=== PATIENT | female | born 1930 | race Caucasian/White ===

== ENCOUNTER 2018-07-12 17:18 | Inpatient (IN) | payer MEDICARE, MEDICAID ==
[~2018-07-12] VITALS: Ht 162.6 cm; Wt 64.4 kg
[2018-07-12 17:43] VITALS: BP 164/67
[2018-07-12] MEDS ORDERED: MAG HYDROX/AL HYDROX/SIMETH 30 ML ORAL.SUSP PO PRN (17:45)
[2018-07-12] MEDS ORDERED: METHYL SALICYLATE/MENTHOL TOPICAL OINTMENT 29GM TUBE. TP PRN (17:45)
[2018-07-12] MEDS ORDERED: MAGNESIUM HYDROXIDE 2,400 MG/30 ML ORAL.SUSP. PO PRN (17:45)
[2018-07-12] MEDS ORDERED: ACETAMINOPHEN 325 MG TABLET PO PRN (17:45)
[2018-07-12] MEDS ORDERED: MEMA10TA PO (18:21)
[2018-07-12] MEDS ORDERED: CHOL100013 PO (18:21)
[2018-07-12] MEDS ORDERED: LORA-254 PO (18:21)
[2018-07-12] MEDS ORDERED: LEVO50TA PO (18:21)
[2018-07-12] MEDS ORDERED: DIVA125C2 PO (18:21)
[2018-07-12] MEDS ORDERED: SERT25TA PO (18:21)
[2018-07-12] MEDS ORDERED: DONE10TA61 PO (18:21)
[2018-07-12] MEDS ORDERED: CYAN10005 PO (18:21)
[2018-07-12] MEDS ORDERED: SPIR25TA PO (18:21)
[2018-07-12] MEDS ORDERED: FURO-69 PO (18:21)
[2018-07-12] MEDS ORDERED: FAMO-63 PO (18:21)
--- NOTE | 2018-07-12 19:20 | HP ---
ADMIT DATE: 07/12/2018 IDENTIFYING DATA: The patient is an 88-year-old female referred to us from [facility] in [place], [place] by Dr. Haider, her primary care physician on account of increased agitation, worsening in the evening. She tried to pull another resident out of bed. She has been impulsive, talks to someone who was not there. She has been restless. She has had significant sleep and appetite changes. She was seen to [facility] Emergency Room, found to have a UTI, given a dose of Monurol. She was extremely agitated in the ER, received Haldol IM 2.5 mg, referred to us for inpatient psychiatric stabilization. CHIEF COMPLAINT: "No." The patient is oriented just to herself, anxious, restless, constantly moving, pulling out Kleenex from a Kleenex box having it all over. HISTORY OF PRESENT ILLNESS: The patient has a history of dementia, Alzheimer's vascular type. She has been residing at the above facility for some time. Over the last several days, she has been increasingly agitated, psychotic with sleep and appetite changes, marked aggression. Behaviors have been deemed dangerous, out of control, unmanageable, dangerous to others, referred for inpatient psychiatric stabilization. No clear history of bipolar disorder. PAST PSYCHIATRIC HISTORY: As above. PAST MEDICAL HISTORY: Positive for hypothyroidism, hyponatremia, and UTI. CODE STATUS: DNR. ALLERGIES: CHEESE, SULFA. XANAX, CELEBREX, CODEINE, DEMEROL, MORPHINE, PILOCARPINE. DIET: GI soft diet. Takes medications whole, ambulates independently, unsteady gait. CURRENT PSYCHOTROPICS: Namenda 10 mg twice a day, Depakote 375 mg b.i.d., Ativan 0.25 t.i.d., Aricept 10 mg a day, Zoloft 25 mg a day. FAMILY HISTORY: Noncontributory. SOCIAL HISTORY: No history of alcohol, drug abuse, physical, sexual or elder abuse history is noted. Not known to be a perpetrator. REACTION TO HOSPITALIZATION: The patient oblivious of this assets. The patient's power of banking attorney is her daughter, Ronda Padilla who arranged this hospitalization who approved for this hospitalization for the patient and stable living at the intermediate. MENTAL STATUS EXAM: The patient was seen individually shortly after she arrived from the unit evening of 07/12/2018. She is anxious, restless, constantly pulling out Kleenex from a Kleenex box. Insight, judgment, recent and remote memory, attention, concentration, fund of knowledge poor, consistent with his diagnosis. IMPRESSION: Major neurocognitive disorder, Alzheimer, vascular with delusion, depression, behavioral disturbance; anxiety disorder, unspecified; impulse control disorder, unspecified; urinary tract infection. Rest as above. PLAN: Admit to geropsychiatry unit at [facility]. I will see the patient daily individually from a psychiatric standpoint, medical followup with Dr. Reed/Dr. Bond from a medical standpoint. Treat the urinary tract infection. Continue current psychotropics. Check a valproic acid level. Make further adjustments depending on baseline assessment. MAN Nataly OLVERA MD DR: MACY/aretha JOB#: [id number] / [id number]
[2018-07-12] MEDS: SERTRALINE 25 MG TABLET. PO SCH (20:56)
[2018-07-12] MEDS: MEMANTINE 10 MG TABLET. PO SCH (20:56)
[2018-07-12] MEDS: DIVALPROEX 125 MG CAP.SPRINK PO SCH (20:56)
[2018-07-12] MEDS: DONEPEZIL HCL 10 MG TABLET PO SCH (20:56)
[2018-07-12] MEDS: LORazepam 0.5 MG TABLET PO SCH (20:57)
--- NOTE | 2018-07-12 21:06 | PDOC ---
Exam Note: Pepe Note: Please also refer to the separate dictated note~for this date of service dictated separately.~Patient seen individually. Discussed the patient with Nursing staff reviewed the chart.~Reviewed interim history and current functioning. Reviewed vital signs,~Labs/ Radiology~and current medications noted below. Continue current treatment with the changes noted in the dictated addendum note Assessment: Vital Signs: Vital Signs Date Time Temp Pulse Resp B/P (MAP) Pulse Ox O2 Delivery O2 Flow Rate FiO2 07/12/18 17:43 98.5 72 20 164/67 (99) 98 Current Medications: Meds: Current Medications Acetaminophen (Tylenol) 650 mg PRN Q6HRS PRN PO PAIN / TEMP; Start 07/12/18 at 17:45 Multi-Ingredient Ointment (Analgesic [place]) 1 jazlyn PRN QID PRN TP MUSCLE PAIN; Start 07/12/18 at 17:45 Al Hydroxide/Mg Hydroxide (Mylanta Plus Xs) 15 ml PRN AFTMEALHC PRN PO DYSPEPSIA; Start 07/12/18 at 17:45 Magnesium Hydroxide (Milk Of Magnesia) 2,400 mg PRN QHS PRN PO CONSTIPATION; Start 07/12/18 at 17:45 Influenza Virus Vaccine (Afluria Trivalent [id number] Syringe) 0.5 ml ONCE ONCE VAX IM ; Start 07/13/18 at 09:00; Stop 07/13/18 at 09:01 Cyanocobalamin (Vitamin B-12) 1,000 mcg DAILY PO ; Start 07/13/18 at 09:00 Furosemide (Lasix) 20 mg DAILY PO ; Start 07/13/18 at 09:00 Lorazepam (Ativan) 0.25 mg TID PO Last administered on 07/12/18at 20:57; Start 07/12/18 at 21:00 Vitamin D (Vitamin D3) 1,000 unit DAILY PO ; Start 07/13/18 at 09:00 Divalproex Sodium (Depakote Sprinkles) 375 mg BID PO Last administered on 07/12at 20:56; Start 07/12/18 at 21:00 Donepezil HCl (Aricept) 10 mg QHS PO Last administered on 07/12/18at 20:56; Start 07/12/18 at 21:00 Famotidine (Pepcid) 20 mg DAILY PO ; Start 07/13/18 at 09:00 Levothyroxine Sodium (Synthroid) 37.5 mcg DAILY06 PO ; Start 07/13/18 at 06:00 Memantine (Namenda) 10 mg BID PO Last administered on 07/12/18at 20:56; Start 07/12/18 at 21:00 Sertraline HCl (Zoloft) 25 mg QHS PO Last administered on 07/12/18at 20:56; Start 07/12/18 at 21:00 Spironolactone (Aldactone) 12.5 mg DAILY PO ; Start 07/13/18 at 09:00 Active Scripts Active Reported Zoloft (Sertraline Hcl) 25 Mg Tablet 25 Mg PO QHS Aricept (Donepezil Hcl) 10 Mg Tablet 10 Mg PO QHS Ativan (Lorazepam) 1 Mg Tablet 0.25 Mg PO TID Depakote Sprinkle (Divalproex Sodium) 125 Mg Cap.sprink 375 Mg PO BID Namenda (Memantine Hcl) 10 Mg Tablet 10 Mg PO BID Vitamin D (Cholecalciferol (Vitamin D3)) 1,000 Unit Capsule 1,000 Unit PO DAILY Aldactone (Spironolactone) 25 Mg Tablet 12.5 Mg PO DAILY Lasix (Furosemide) 20 Mg Tablet 20 Mg PO DAILY Pepcid (Famotidine) 20 Mg Tablet 20 Mg PO DAILY Vitamin B-12 (Cyanocobalamin (Vitamin B-12)) 1,000 Mcg Tablet 1,000 Mcg PO DAILY Synthroid (Levothyroxine Sodium) 50 Mcg Tablet 37.5 Mcg PO DAILY06 I have reviewed the current psychotropics carefully including drug interactions. Risk benefit ratio favors no change other than as noted in my dictated progress note. Diagnosis: Problems: (1) Anxiety disorder (2) Dementia in Alzheimer's disease with delusions (3) Dementia in Alzheimer's disease with depression (4) Dementia, vascular, with delusions (5) Dementia, vascular, with depression (6) Impulse control disorder (7) Urinary tract infection NANDA OLVERA MD Jul 12, 2018 21:06
[2018-07-13 06:18] VITALS: BP 140/82
[2018-07-13] MEDS: LEVOTHYROXINE 75 MCG TABLET PO SCH (06:20)
[2018-07-13 07:30] LABS: BASO % 1 % (0-3); EOS # 0.2 x10^3/uL (0.0-0.7); EOS % 5 % (0-3); HEMATOCRIT 40.2 % (36.0-47.0); HEMOGLOBIN 13.5 g/dL (12.0-15.5); LYMPH # 1.1 x10^3/uL (1.0-4.8); LYMPH % 25 % (24-48); MEAN CORPUSCULAR HEMOGLOBIN 31 pg (25-35); MEAN CORPUSCULAR HGB CONC 34 g/dL (31-37); MEAN CORPUSCULAR VOLUME 93 fL (79-100); MONO # 0.4 x10^3/uL (0.0-1.1); MONO % 10 % (0-9); NEUT # 2.6 x10^3uL (1.8-7.7); NEUT % 59 % (31-73); PLATELET COUNT 194 x10^3/uL (140-400); RED BLOOD COUNT 4.31 x10^6/uL (3.50-5.40); RED CELL DISTRIBUTION WIDTH 13.7 % (11.5-14.5); WHITE BLOOD COUNT 4.3 x10^3/uL (4.0-11.0)
[2018-07-13 07:42] LABS: ALBUMIN 3.2 g/dL (3.4-5.0); ALBUMIN/GLOBULIN RATIO 0.8 (1.0-1.7); CALCIUM 8.6 mg/dL (8.5-10.1); CREATININE 0.9 mg/dL (0.6-1.0); MAGNESIUM 2.4 mg/dL (1.8-2.4); POTASSIUM 3.9 mmol/L (3.5-5.1); TOTAL BILIRUBIN 0.5 mg/dL (0.2-1.0); TOTAL PROTEIN 7.1 g/dL (6.4-8.2)
[2018-07-13 07:46] LABS: VAL ACID 39 mcg/mL (50-100)
[2018-07-13] MEDS: DIVALPROEX 125 MG CAP.SPRINK PO SCH ×2 (10:25→19:30)
[2018-07-13] MEDS: MEMANTINE 10 MG TABLET. PO SCH ×2 (10:25→19:26)
[2018-07-13] MEDS: FAMOTIDINE 20 MG TABLET PO SCH (10:35)
[2018-07-13] MEDS: FUROSEMIDE 20 MG TABLET PO SCH (10:35)
[2018-07-13] MEDS: CYANOCOBALAMIN (VITAMIN B-12) 1,000 MCG TABLET. PO SCH (10:36)
[2018-07-13] MEDS: LORazepam 0.5 MG TABLET PO SCH ×3 (10:36→19:29)
[2018-07-13] MEDS: CHOLECALCIFEROL (VITAMIN D3) 1,000 UNIT TABLET PO SCH (10:36)
[2018-07-13] MEDS: SPIRONOLACTONE 25 MG TABLET PO SCH (10:36)
[2018-07-13 13:33] LABS: THYROID STIM HORMONE (TSH) 3.214 uIU/mL (0.358-3.740)
--- NOTE | 2018-07-13 15:56 | PDOC2 ---
CONSULT Date of Admission DATE: 07/12/18 Reason for Consult: Medical management Referring Physician: Dr Mujica Chief Complaint Worsening dementia Source: Caregiver, Chart review, Patient History of Present Illness: Patient is an 88-year-old female from [facility] in [place], [place] by Dr. Haider, her primary care physician with increased agitation, particularly in the evening. Records indicate she's been restless and impulsive, apparently hallucinating talking to people who were not present. Records indicate that she tried to pull another resident out of bed. She has been eating and sleeping less. She was initially sent to [facility] emergency department CT head reportedly negative and urine was grossly positive for infection received Monural. Records indicate that she grew extremely agitated and unmanageable in the ER, received Haldol IM 2.5 mg. Medically she has history of hypothyroidism and hyponatremia in addition to her current UTI. I find the patient pacing up and down the [place] as if with purpose. Intermittently she will stop and move her hands rapidly over the hand rail while mumbling to herself. When I engage her to talk she begins speaking very rapidly mostly unintelligibly and upon stopping she once again begins marching. She has a DNR is very mobile. Available labs are reassuring, pertinent abnormalities include albumin 3.2, LDL 129, vitamin D 25.2, valproic acid 39, urine has not yet been collected. CENTRAL NERVOUS SYSTEM: Dementia (encephalopathy) Psych: Anxiety, Depression Renal/: UTI Endocrine: Hypothyroidism, Other (hyponatremia) Past Surgical History: No pertinent history Smoke: No ALCOHOL: none Drugs: None Lives: [facility] Current Medications Current Medications Acetaminophen (Tylenol) 650 mg PRN Q6HRS PRN PO PAIN / TEMP; Start 07/12/18 at 17:45 Multi-Ingredient Ointment (Analgesic [place]) 1 jazlyn PRN QID PRN TP MUSCLE PAIN; Start 07/12/18 at 17:45 Al Hydroxide/Mg Hydroxide (Mylanta Plus Xs) 15 ml PRN AFTMEALHC PRN PO DYSPEPSIA; Start 07/12/18 at 17:45 Magnesium Hydroxide (Milk Of Magnesia) 2,400 mg PRN QHS PRN PO CONSTIPATION; Start 07/12/18 at 17:45 Influenza Virus Vaccine (Afluria Trivalent [id number] Syringe) 0.5 ml ONCE ONCE VAX IM Last administered on 07/13/18 15:24; Start 07/13/18 at 09:00; Stop 07/13/18 at 09:01; Status DC Cyanocobalamin (Vitamin B-12) 1,000 mcg DAILY PO Last administered on 10:36; Start 07/13/18 at 09:00 Furosemide (Lasix) 20 mg DAILY PO Last administered on 07/13/18 10:35; Start 07/13/18 at 09:00 Lorazepam (Ativan) 0.25 mg TID PO Last administered on 07/13/18at 15:05; Start 07/12/18 at 21:00 Vitamin D (Vitamin D3) 1,000 unit DAILY PO Last administered on 07/13/18 10: 36; Start 07/13/18 at 09:00 Divalproex Sodium (Depakote Sprinkles) 375 mg BID PO Last administered on 07/13 10:25; Start 07/12/18 at 21:00; Stop 07/13/18 at 12:50; Status DC Donepezil HCl (Aricept) 10 mg QHS PO Last administered on 07/12/18at 20:56; Start 07/12/18 at 21:00 Famotidine (Pepcid) 20 mg DAILY PO Last administered on 07/13/18 10:35; Start 07/13/18 at 09:00 Levothyroxine Sodium (Synthroid) 37.5 mcg DAILY06 PO Last administered on 07/13at 06:20; Start 07/13/18 at 06:00 Memantine (Namenda) 10 mg BID PO Last administered on 07/13/18at 10:25; Start 07/12/18 at 21:00 Sertraline HCl (Zoloft) 25 mg QHS PO Last administered on 07/12/18at 20:56; Start 07/12/18 at 21:00 Spironolactone (Aldactone) 12.5 mg DAILY PO Last administered on 07/13/18 10: 36; Start 07/13/18 at 09:00 Divalproex Sodium (Depakote Sprinkles) 500 mg BID PO ; Start 07/13/18 at 21:00 Active Scripts Active Reported Zoloft (Sertraline Hcl) 25 Mg Tablet 25 Mg PO QHS Aricept (Donepezil Hcl) 10 Mg Tablet 10 Mg PO QHS Ativan (Lorazepam) 1 Mg Tablet 0.25 Mg PO TID Depakote Sprinkle (Divalproex Sodium) 125 Mg Cap.sprink 375 Mg PO BID Namenda (Memantine Hcl) 10 Mg Tablet 10 Mg PO BID Vitamin D (Cholecalciferol (Vitamin D3)) 1,000 Unit Capsule 1,000 Unit PO DAILY Aldactone (Spironolactone) 25 Mg Tablet 12.5 Mg PO DAILY Lasix (Furosemide) 20 Mg Tablet 20 Mg PO DAILY Pepcid (Famotidine) 20 Mg Tablet 20 Mg PO DAILY Vitamin B-12 (Cyanocobalamin (Vitamin B-12)) 1,000 Mcg Tablet 1,000 Mcg PO DAILY Synthroid (Levothyroxine Sodium) 50 Mcg Tablet 37.5 Mcg PO DAILY06 Allergies: Coded Allergies: Sulfa (Sulfonamide Antibiotics) (Verified Allergy, Intermediate, 07/13/18) alprazolam (Verified Allergy, Intermediate, 07/13/18) celecoxib (Verified Allergy, Intermediate, 07/13/18) cheese (Verified Allergy, Intermediate, 07/13/18) codeine (Verified Allergy, Intermediate, 07/13/18) meperidine (Verified Allergy, Intermediate, 07/13/18) morphine (Verified Allergy, Intermediate, 07/13/18) pilocarpine (Verified Allergy, Intermediate, 07/13/18) Review of Systems: Due to patient's condition and accurate review of systems is unobtainable, please see history of present illness Physical Exam: Gen.: Alert, confused, no apparent distress HEENT: Normocephalic atraumatic, PERRLA EOMI as tested, no scleral icterus, oral mucosa pink and moist Neck: Supple, no lymphadenopathy, nontender Cardiovascular: Normal S1 and S2 no murmurs Pulmonary: Lungs are clear bilaterally with good air movement no respiratory distress Abdomen: Soft nontender non-distended, bowel sounds present no masses Extremities: No clubbing, cyanosis or edema Neuro: Alert happily confused, cranial nerves II through XII grossly intact, no lateralizing neuro deficits Skin: Warm, dry VITALS Vital Signs Date Time Temp Pulse Resp B/P (MAP) Pulse Ox O2 Delivery O2 Flow Rate FiO2 10/11/18 06:18 96.8 82 20 140/82 (101) 95 Labs Laboratory Tests Test 07/13/18 06:47 White Blood Count 4.3 x10^3/uL (4.0-11.0) Red Blood Count 4.31 x10^6/uL (3.50-5.40) Hemoglobin 13.5 g/dL (12.0-15.5) Hematocrit 40.2 % (36.0-47.0) Mean Corpuscular Volume 93 fL (79-100) Mean Corpuscular Hemoglobin 31 pg (25-35) Mean Corpuscular Hemoglobin Concent 34 g/dL (31-37) Red Cell Distribution Width 13.7 % (11.5-14.5) Platelet Count 194 x10^3/uL (140-400) Neutrophils (%) (Auto) 59 % (31-73) Lymphocytes (%) (Auto) 25 % (24-48) Monocytes (%) (Auto) 10 % (0-9) Eosinophils (%) (Auto) 5 % (0-3) Basophils (%) (Auto) 1 % (0-3) Neutrophils # (Auto) 2.6 x10^3uL (1.8-7.7) Lymphocytes # (Auto) 1.1 x10^3/uL (1.0-4.8) Monocytes # (Auto) 0.4 x10^3/uL (0.0-1.1) Eosinophils # (Auto) 0.2 x10^3/uL (0.0-0.7) Basophils # (Auto) 0.0 x10^3/uL (0.0-0.2) Sodium Level 142 mmol/L (136-145) Potassium Level 3.9 mmol/L (3.5-5.1) Chloride Level 106 mmol/L (98-107) Carbon Dioxide Level 30 mmol/L (21-32) Anion Gap 6 (6-14) Blood Urea Nitrogen 15 mg/dL (7-20) Creatinine 0.9 mg/dL (0.6-1.0) Estimated GFR (Cockcroft-Gault) 59.0 BUN/Creatinine Ratio 17 (6-20) Glucose Level 88 mg/dL (70-99) Calcium Level 8.6 mg/dL (8.5-10.1) Magnesium Level 2.4 mg/dL (1.8-2.4) Iron Level 51 ug/dL (50-170) Total Iron Binding Capacity 268 ug/dL (250-450) Iron Saturation 19 % (15-34) Total Bilirubin 0.5 mg/dL (0.2-1.0) Aspartate Amino Transf (AST/SGOT) 18 U/L (15-37) Alanine Aminotransferase (ALT/SGPT) 24 U/L (14-59) Alkaline Phosphatase 114 U/L (46-116) Total Protein 7.1 g/dL (6.4-8.2) Albumin 3.2 g/dL (3.4-5.0) Albumin/Globulin Ratio 0.8 (1.0-1.7) Triglycerides Level 86 mg/dL (0-150) Cholesterol Level 201 mg/dL (0-200) LDL Cholesterol, Calculated 129 mg/dL (0-100) VLDL Cholesterol, Calculated 17 mg/dL (0-40) Non-HDL Cholesterol Calculated 146 mg/dL (0-129) HDL Cholesterol 55 mg/dL (40-60) Cholesterol/HDL Ratio 3.0 Vitamin B12 Level 1122 pg/mL (247-911) 25-Hydroxy Vitamin D Total 25.2 ng/mL (30-100) Thyroid Stimulating Hormone (TSH) 3.214 uIU/mL (0.358-3.740) Valproic Acid (Depakene) Level 39 mcg/mL (50-100) Valproic Acid Last Dose Date 07/12/18 Valproic Acid Last Dose Time 2100 Treponema pallidum Antibody Nonreactive (Nonreactive) Assessment/Plan In general this is an 88-year-old female with worsening dementia and chronic medical problems currently controlled. TSH and sodium normal, LDL mildly elevated at 129 and vitamin D slightly low at 25.2 neither of which I feel that weren't pharmaceutical therapy. Received Monurol for UTI will repeat urine in the morning. We will continue to follow and offer treatments as indicated. Thank you, Dr. Mujica for allowing me to pursue pain in the care of your patient. SARY MAJOR DO Jul 13, 2018 15:56
[2018-07-13 16:42] VITALS: BP 149/85
[2018-07-13 19:12] LABS: THYROXINE 7.8 ug/dL (4.5-12.0)
[2018-07-13] MEDS: DONEPEZIL HCL 10 MG TABLET PO SCH (19:26)
[2018-07-13] MEDS: SERTRALINE 25 MG TABLET. PO SCH (19:26)
--- NOTE | 2018-07-13 20:50 | PDOC ---
Exam Note: Pepe Note: Please also refer to the separate dictated note~for this date of service dictated separately.~Patient seen individually. Discussed the patient with Nursing staff reviewed the chart.~Reviewed interim history and current functioning. Reviewed vital signs,~Labs/ Radiology~and current medications noted below. Continue current treatment with the changes noted in the dictated addendum note Assessment: Vital Signs: Vital Signs Date Time Temp Pulse Resp B/P (MAP) Pulse Ox O2 Delivery O2 Flow Rate FiO2 07/13/18 16:42 97.9 88 17 149/85 (106) 92 Room Air I&O Intake and Output 07/13/18 07:00 Intake Total 120 ml Balance 120 ml Intake Oral 120 ml # Voids 1 Labs: Laboratory Tests Test 07/13/18 06:47 White Blood Count 4.3 x10^3/uL (4.0-11.0) Red Blood Count 4.31 x10^6/uL (3.50-5.40) Hemoglobin 13.5 g/dL (12.0-15.5) Hematocrit 40.2 % (36.0-47.0) Mean Corpuscular Volume 93 fL (79-100) Mean Corpuscular Hemoglobin 31 pg (25-35) Mean Corpuscular Hemoglobin Concent 34 g/dL (31-37) Red Cell Distribution Width 13.7 % (11.5-14.5) Platelet Count 194 x10^3/uL (140-400) Neutrophils (%) (Auto) 59 % (31-73) Lymphocytes (%) (Auto) 25 % (24-48) Monocytes (%) (Auto) 10 % (0-9) H Eosinophils (%) (Auto) 5 % (0-3) H Basophils (%) (Auto) 1 % (0-3) Neutrophils # (Auto) 2.6 x10^3uL (1.8-7.7) Lymphocytes # (Auto) 1.1 x10^3/uL (1.0-4.8) Monocytes # (Auto) 0.4 x10^3/uL (0.0-1.1) Eosinophils # (Auto) 0.2 x10^3/uL (0.0-0.7) Basophils # (Auto) 0.0 x10^3/uL (0.0-0.2) Sodium Level 142 mmol/L (136-145) Potassium Level 3.9 mmol/L (3.5-5.1) Chloride Level 106 mmol/L (98-107) Carbon Dioxide Level 30 mmol/L (21-32) Anion Gap 6 (6-14) Blood Urea Nitrogen 15 mg/dL (7-20) Creatinine 0.9 mg/dL (0.6-1.0) Estimated GFR (Cockcroft-Gault) 59.0 BUN/Creatinine Ratio 17 (6-20) Glucose Level 88 mg/dL (70-99) Calcium Level 8.6 mg/dL (8.5-10.1) Magnesium Level 2.4 mg/dL (1.8-2.4) Iron Level 51 ug/dL (50-170) Total Iron Binding Capacity 268 ug/dL (250-450) Iron Saturation 19 % (15-34) Total Bilirubin 0.5 mg/dL (0.2-1.0) Aspartate Amino Transferase (AST) 18 U/L (15-37) Alanine Aminotransferase (ALT) 24 U/L (14-59) Alkaline Phosphatase 114 U/L (46-116) Total Protein 7.1 g/dL (6.4-8.2) Albumin 3.2 g/dL (3.4-5.0) L Albumin/Globulin Ratio 0.8 (1.0-1.7) L Triglycerides Level 86 mg/dL (0-150) Cholesterol Level 201 mg/dL (0-200) H LDL Cholesterol, Calculated 129 mg/dL (0-100) H VLDL Cholesterol, Calculated 17 mg/dL (0-40) Non-HDL Cholesterol Calculated 146 mg/dL (0-129) H HDL Cholesterol 55 mg/dL (40-60) Cholesterol/HDL Ratio 3.0 Vitamin B12 Level 1122 pg/mL (247-911) H 25-Hydroxy Vitamin D Total 25.2 ng/mL (30-100) L Thyroid Stimulating Hormone (TSH) 3.214 uIU/mL (0.358-3.740) Thyroxine (T4) 7.8 ug/dL (4.5-12.0) Total Triiodothyronine (TT3) 94 ng/dL (71-180) Valproic Acid Level 39 mcg/mL (50-100) L Valproic Acid Last Dose Date 07/12/18 Valproic Acid Last Dose Time 2100 Treponema pallidum Antibody Nonreactive (Nonreactive) Current Medications: Meds: Current Medications Acetaminophen (Tylenol) 650 mg PRN Q6HRS PRN PO PAIN / TEMP; Start 07/12/18 at 17:45 Multi-Ingredient Ointment (Analgesic [place]) 1 jazlyn PRN QID PRN TP MUSCLE PAIN; Start 07/12/18 at 17:45 Al Hydroxide/Mg Hydroxide (Mylanta Plus Xs) 15 ml PRN AFTMEALHC PRN PO DYSPEPSIA; Start 07/12/18 at 17:45 Magnesium Hydroxide (Milk Of Magnesia) 2,400 mg PRN QHS PRN PO CONSTIPATION; Start 07/12/18 at 17:45 Influenza Virus Vaccine (Afluria Trivalent [id number] Syringe) 0.5 ml ONCE ONCE VAX IM Last administered on 07/13/18at 15:24; Start 07/13/18 at 09:00; Stop 07/13/18 at 09:01; Status DC Cyanocobalamin (Vitamin B-12) 1,000 mcg DAILY PO Last administered on at 10:36; Start 07/13/18 at 09:00 Furosemide (Lasix) 20 mg DAILY PO Last administered on 07/13/18at 10:35; Start 07/13/18 at 09:00 Lorazepam (Ativan) 0.25 mg TID PO Last administered on 07/13/18at 19:29; Start 07/12/18 at 21:00 Vitamin D (Vitamin D3) 1,000 unit DAILY PO Last administered on 07/13/18at 10: 36; Start 07/13/18 at 09:00 Divalproex Sodium (Depakote Sprinkles) 375 mg BID PO Last administered on 07/13at 10:25; Start 07/12/18 at 21:00; Stop 07/13/18 at 12:50; Status DC Donepezil HCl (Aricept) 10 mg QHS PO Last administered on 07/13/18at 19:26; Start 07/12/18 at 21:00 Famotidine (Pepcid) 20 mg DAILY PO Last administered on 07/13/18at 10:35; Start 07/13/18 at 09:00 Levothyroxine Sodium (Synthroid) 37.5 mcg DAILY06 PO Last administered on 07/13at 06:20; Start 07/13/18 at 06:00 Memantine (Namenda) 10 mg BID PO Last administered on 07/13/18 19:26; Start 07/12/18 at 21:00 Sertraline HCl (Zoloft) 25 mg QHS PO Last administered on 07/13/18 19:26; Start 07/12/18 at 21:00 Spironolactone (Aldactone) 12.5 mg DAILY PO Last administered on 07/13/18at 10: 36; Start 07/13/18 at 09:00 Divalproex Sodium (Depakote Sprinkles) 500 mg BID PO Last administered on 07/13 19:30; Start 07/13/18 at 21:00 Active Scripts Active Reported Zoloft (Sertraline Hcl) 25 Mg Tablet 25 Mg PO QHS Aricept (Donepezil Hcl) 10 Mg Tablet 10 Mg PO QHS Ativan (Lorazepam) 1 Mg Tablet 0.25 Mg PO TID Depakote Sprinkle (Divalproex Sodium) 125 Mg Cap.sprink 375 Mg PO BID Namenda (Memantine Hcl) 10 Mg Tablet 10 Mg PO BID Vitamin D (Cholecalciferol (Vitamin D3)) 1,000 Unit Capsule 1,000 Unit PO DAILY Aldactone (Spironolactone) 25 Mg Tablet 12.5 Mg PO DAILY Lasix (Furosemide) 20 Mg Tablet 20 Mg PO DAILY Pepcid (Famotidine) 20 Mg Tablet 20 Mg PO DAILY Vitamin B-12 (Cyanocobalamin (Vitamin B-12)) 1,000 Mcg Tablet 1,000 Mcg PO DAILY Synthroid (Levothyroxine Sodium) 50 Mcg Tablet 37.5 Mcg PO DAILY06 I have reviewed the current psychotropics carefully including drug interactions. Risk benefit ratio favors no change other than as noted in my dictated progress note. Diagnosis: Problems: (1) Anxiety disorder (2) Dementia in Alzheimer's disease with delusions (3) Dementia in Alzheimer's disease with depression (4) Dementia, vascular, with delusions (5) Dementia, vascular, with depression (6) Impulse control disorder (7) Urinary tract infection NANDA OLVERA MD Jul 13, 2018 20:50
[2018-07-14 02:08] LABS: HEMOGLOBIN A1C 5.3 % (4.8-5.6)
[2018-07-14 02:20] VITALS: BP 149/81
[2018-07-14] MEDS: LEVOTHYROXINE 75 MCG TABLET PO SCH (05:22)
[2018-07-14 06:14] VITALS: BP 154/68
[2018-07-14] MEDS: FAMOTIDINE 20 MG TABLET PO SCH (07:55)
[2018-07-14] MEDS: DIVALPROEX 125 MG CAP.SPRINK PO SCH ×2 (07:55→19:25)
[2018-07-14] MEDS: CHOLECALCIFEROL (VITAMIN D3) 1,000 UNIT TABLET PO SCH (07:56)
[2018-07-14] MEDS: SPIRONOLACTONE 25 MG TABLET PO SCH (07:56)
[2018-07-14] MEDS: CYANOCOBALAMIN (VITAMIN B-12) 1,000 MCG TABLET. PO SCH (07:56)
[2018-07-14] MEDS: FUROSEMIDE 20 MG TABLET PO SCH (07:57)
[2018-07-14] MEDS: MEMANTINE 10 MG TABLET. PO SCH ×2 (07:57→19:25)
[2018-07-14] MEDS: LORazepam 0.5 MG TABLET PO SCH ×3 (08:01→19:27)
--- NOTE | 2018-07-14 15:48 | HP ---
ADMIT DATE: 07/12/2018 PSYCHIATRIC ADMISSION HISTORY/EVALUATION This is late entry, date of service 07/12/2018 covers elements not covered in my initial note. I met with the patient evening of 07/12/2018 for this evaluation. IDENTIFYING DATA: The patient is an 88-year-old female referred to us from a [facility] by Dr. Reed. Dictation ends here ANNDA OLVERA MD DR: MACY/nts JOB#: [id number] / [id number]
[2018-07-14 15:51] VITALS: BP 158/80
[2018-07-14] MEDS: SERTRALINE 25 MG TABLET. PO SCH (19:24)
[2018-07-14] MEDS: DONEPEZIL HCL 10 MG TABLET PO SCH (19:25)
--- NOTE | 2018-07-14 20:53 | PDOC ---
Exam Note: Pepe Note: Please also refer to the separate dictated note~for this date of service dictated separately.~Patient seen individually. Discussed the patient with Nursing staff reviewed the chart.~Reviewed interim history and current functioning. Reviewed vital signs,~Labs/ Radiology~and current medications noted below. Continue current treatment with the changes noted in the dictated addendum note Assessment: Vital Signs: Vital Signs Date Time Temp Pulse Resp B/P (MAP) Pulse Ox O2 Delivery O2 Flow Rate FiO2 07/14/18 15:51 97.1 75 18 158/80 (106) 98 Room Air I&O Intake and Output 07/14/18 07:00 Intake Total 840 ml Balance 840 ml Intake Oral 840 ml # Bowel Movements 3 Current Medications: Meds: Current Medications Acetaminophen (Tylenol) 650 mg PRN Q6HRS PRN PO PAIN / TEMP; Start 07/12/18 at 17:45 Multi-Ingredient Ointment (Analgesic [place]) 1 jazlyn PRN QID PRN TP MUSCLE PAIN; Start 07/12/18 at 17:45 Al Hydroxide/Mg Hydroxide (Mylanta Plus Xs) 15 ml PRN AFTMEALHC PRN PO DYSPEPSIA; Start 07/12/18 at 17:45 Magnesium Hydroxide (Milk Of Magnesia) 2,400 mg PRN QHS PRN PO CONSTIPATION; Start 07/12/18 at 17:45 Influenza Virus Vaccine (Afluria Trivalent [id number] Syringe) 0.5 ml ONCE ONCE VAX IM Last administered on 07/13/18at 15:24; Start 07/13/18 at 09:00; Stop 07/13/18 at 09:01; Status DC Cyanocobalamin (Vitamin B-12) 1,000 mcg DAILY PO Last administered on at 07:56; Start 07/13/18 at 09:00 Furosemide (Lasix) 20 mg DAILY PO Last administered on 07/14/18at 07:57; Start 07/13/18 at 09:00 Lorazepam (Ativan) 0.25 mg TID PO Last administered on 07/14/18at 19:27; Start 07/12/18 at 21:00 Vitamin D (Vitamin D3) 1,000 unit DAILY PO Last administered on 07/14/18at 07: 56; Start 07/13/18 at 09:00 Divalproex Sodium (Depakote Sprinkles) 375 mg BID PO Last administered on 07/13 10:25; Start 07/12/18 at 21:00; Stop 07/13/18 at 12:50; Status DC Donepezil HCl (Aricept) 10 mg QHS PO Last administered on 07/14/18 19:25; Start 07/12/18 at 21:00 Famotidine (Pepcid) 20 mg DAILY PO Last administered on 07/14/18at 07:55; Start 07/13/18 at 09:00 Levothyroxine Sodium (Synthroid) 37.5 mcg DAILY06 PO Last administered on 07/14 05:22; Start 07/13/18 at 06:00 Memantine (Namenda) 10 mg BID PO Last administered on 07/14/18 19:25; Start 07/12/18 at 21:00 Sertraline HCl (Zoloft) 25 mg QHS PO Last administered on 07/14/18 19:24; Start 07/12/18 at 21:00 Spironolactone (Aldactone) 12.5 mg DAILY PO Last administered on 07/14/18 07: 56; Start 07/13/18 at 09:00 Divalproex Sodium (Depakote Sprinkles) 500 mg BID PO Last administered on 07/14 19:25; Start 07/13/18 at 21:00 Active Scripts Active Reported Zoloft (Sertraline Hcl) 25 Mg Tablet 25 Mg PO QHS Aricept (Donepezil Hcl) 10 Mg Tablet 10 Mg PO QHS Ativan (Lorazepam) 1 Mg Tablet 0.25 Mg PO TID Depakote Sprinkle (Divalproex Sodium) 125 Mg Cap.sprink 375 Mg PO BID Namenda (Memantine Hcl) 10 Mg Tablet 10 Mg PO BID Vitamin D (Cholecalciferol (Vitamin D3)) 1,000 Unit Capsule 1,000 Unit PO DAILY Aldactone (Spironolactone) 25 Mg Tablet 12.5 Mg PO DAILY Lasix (Furosemide) 20 Mg Tablet 20 Mg PO DAILY Pepcid (Famotidine) 20 Mg Tablet 20 Mg PO DAILY Vitamin B-12 (Cyanocobalamin (Vitamin B-12)) 1,000 Mcg Tablet 1,000 Mcg PO DAILY Synthroid (Levothyroxine Sodium) 50 Mcg Tablet 37.5 Mcg PO DAILY06 I have reviewed the current psychotropics carefully including drug interactions. Risk benefit ratio favors no change other than as noted in my dictated progress note. Diagnosis: Problems: (1) Anxiety disorder (2) Dementia in Alzheimer's disease with delusions (3) Dementia in Alzheimer's disease with depression (4) Dementia, vascular, with delusions (5) Dementia, vascular, with depression (6) Impulse control disorder (7) Urinary tract infection NANDA OLVERA MD Jul 14, 2018 20:53
--- NOTE | 2018-07-14 23:55 | PN ---
DATE: 07/13/2018 This is a late entry of 07/13/2018, covers elements not covered in my initial note. SUBJECTIVE: I met with the patient in the evening, staffed at a treatment team meeting with the entire team in the morning. Review of the patient's history, diagnosis, past treatments, the patient has been drowsy, quite confused. Speech is word salad. REVIEW OF SYSTEMS: Ambulation is independent. No CV, , pulmonary, eye, ENT system symptoms on review. Reliability poor. MENTAL STATUS EXAM: Oriented to herself. Insight, judgment, recent and remote memory, attention, concentration, fund of knowledge poor, consistent with her diagnoses. IMPRESSION: Major neurocognitive disorder, Alzheimer, vascular with delusion, depression, behavioral disturbance; anxiety disorder, unspecified; impulse control disorder, unspecified; urinary tract infection. PLAN: Valproic acid level is 39, on Depakote 375 b.i.d. We will increase it to 500 b.i.d. Check CBC, CMP, valproic acid level in 3 days. Continue Namenda 10 b.i.d., Aricept 10 mg a day, Zoloft 25 mg a day for now, Ativan 0.25 t.i.d. and we may gradually taper this. NANDA OLVERA MD DR: MACY/aretha JOB#: [id number] / [id number]
[2018-07-15 06:06] VITALS: BP 151/80
[2018-07-15] MEDS: MEMANTINE 10 MG TABLET. PO SCH ×2 (06:35→20:18)
[2018-07-15] MEDS: DIVALPROEX 125 MG CAP.SPRINK PO SCH ×2 (06:35→20:18)
[2018-07-15] MEDS: CHOLECALCIFEROL (VITAMIN D3) 1,000 UNIT TABLET PO SCH (06:35)
[2018-07-15] MEDS: CYANOCOBALAMIN (VITAMIN B-12) 1,000 MCG TABLET. PO SCH (06:35)
[2018-07-15] MEDS: FUROSEMIDE 20 MG TABLET PO SCH (06:35)
[2018-07-15] MEDS: SPIRONOLACTONE 25 MG TABLET PO SCH (06:36)
[2018-07-15] MEDS: FAMOTIDINE 20 MG TABLET PO SCH (06:36)
[2018-07-15] MEDS: LEVOTHYROXINE 75 MCG TABLET PO SCH (06:37)
[2018-07-15] MEDS: LORazepam 0.5 MG TABLET PO SCH ×3 (10:03→20:21)
[2018-07-15 16:45] VITALS: BP 127/78
--- NOTE | 2018-07-15 20:05 | PN ---
DATE: 07/14/2018 PSYCHIATRIC PROGRESS NOTE This late entry 07/14/2018 covers elements not covered in my initial note. SUBJECTIVE: I met with the patient in the evening. The patient slept 5-3/4 hours previous night, has not put herself on the floor, which is an improvement. Valproic acid level is 39. We will repeat on 07/16/2018. She is paranoid, confused, believes people are stealing food from her. No CV, , pulmonary, eye, ENT system symptoms on review. Ambulates independently. Reliability poor. MENTAL STATUS EXAM: Oriented to herself. Insight, judgment, recent and remote memory, attention, concentration, fund of knowledge poor, consistent with her diagnosis mentioned in my initial note. PLAN: No change from initial note. MAN Nataly OLVERA MD DR: MACY/aretha JOB#: [id number] / [id number]
[2018-07-15] MEDS: DONEPEZIL HCL 10 MG TABLET PO SCH (20:18)
[2018-07-15] MEDS: SERTRALINE 25 MG TABLET. PO SCH (20:18)
--- NOTE | 2018-07-15 22:51 | PDOC ---
Exam Note: Pepe Note: Please also refer to the separate dictated note~for this date of service dictated separately.~Patient seen individually. Discussed the patient with Nursing staff reviewed the chart.~Reviewed interim history and current functioning. Reviewed vital signs,~Labs/ Radiology~and current medications noted below. Continue current treatment with the changes noted in the dictated addendum note Assessment: Vital Signs: Vital Signs Date Time Temp Pulse Resp B/P (MAP) Pulse Ox O2 Delivery O2 Flow Rate FiO2 07/15/18 16:45 97.2 59 20 127/78 (94) 97 07/14/18 15:51 Room Air I&O Intake and Output 07/15/18 07:00 Intake Total 1260 ml Balance 1260 ml Intake Oral 1260 ml # Voids 1 # Bowel Movements 1 Current Medications: Meds: Current Medications Acetaminophen (Tylenol) 650 mg PRN Q6HRS PRN PO PAIN / TEMP; Start 07/12/18 at 17:45 Multi-Ingredient Ointment (Analgesic [place]) 1 jazlyn PRN QID PRN TP MUSCLE PAIN; Start 07/12/18 at 17:45 Al Hydroxide/Mg Hydroxide (Mylanta Plus Xs) 15 ml PRN AFTMEALHC PRN PO DYSPEPSIA; Start 07/12/18 at 17:45 Magnesium Hydroxide (Milk Of Magnesia) 2,400 mg PRN QHS PRN PO CONSTIPATION; Start 07/12/18 at 17:45 Influenza Virus Vaccine (Afluria Trivalent [id number] Syringe) 0.5 ml ONCE ONCE VAX IM Last administered on 07/13/18at 15:24; Start 07/13/18 at 09:00; Stop 07/13/18 at 09:01; Status DC Cyanocobalamin (Vitamin B-12) 1,000 mcg DAILY PO Last administered on at 06:35; Start 07/13/18 at 09:00 Furosemide (Lasix) 20 mg DAILY PO Last administered on 07/15/18at 06:35; Start 07/13/18 at 09:00 Lorazepam (Ativan) 0.25 mg TID PO Last administered on 07/15/18at 20:21; Start 07/12/18 at 21:00 Vitamin D (Vitamin D3) 1,000 unit DAILY PO Last administered on 07/15/18at 06: 35; Start 07/13/18 at 09:00 Divalproex Sodium (Depakote Sprinkles) 375 mg BID PO Last administered on 07/13at 10:25; Start 07/12/18 at 21:00; Stop 07/13/18 at 12:50; Status DC Donepezil HCl (Aricept) 10 mg QHS PO Last administered on 07/15/18at 20:18; Start 07/12/18 at 21:00 Famotidine (Pepcid) 20 mg DAILY PO Last administered on 07/15/18at 06:36; Start 07/13/18 at 09:00 Levothyroxine Sodium (Synthroid) 37.5 mcg DAILY06 PO Last administered on 07/15at 06:37; Start 07/13/18 at 06:00 Memantine (Namenda) 10 mg BID PO Last administered on 07/15/18at 20:18; Start 07/12/18 at 21:00 Sertraline HCl (Zoloft) 25 mg QHS PO Last administered on 07/15/18at 20:18; Start 07/12/18 at 21:00 Spironolactone (Aldactone) 12.5 mg DAILY PO Last administered on 07/15/18at 06: 36; Start 07/13/18 at 09:00 Divalproex Sodium (Depakote Sprinkles) 500 mg BID PO Last administered on 07/15at 20:18; Start 07/13/18 at 21:00 Active Scripts Active Reported Zoloft (Sertraline Hcl) 25 Mg Tablet 25 Mg PO QHS Aricept (Donepezil Hcl) 10 Mg Tablet 10 Mg PO QHS Ativan (Lorazepam) 1 Mg Tablet 0.25 Mg PO TID Depakote Sprinkle (Divalproex Sodium) 125 Mg Cap.sprink 375 Mg PO BID Namenda (Memantine Hcl) 10 Mg Tablet 10 Mg PO BID Vitamin D (Cholecalciferol (Vitamin D3)) 1,000 Unit Capsule 1,000 Unit PO DAILY Aldactone (Spironolactone) 25 Mg Tablet 12.5 Mg PO DAILY Lasix (Furosemide) 20 Mg Tablet 20 Mg PO DAILY Pepcid (Famotidine) 20 Mg Tablet 20 Mg PO DAILY Vitamin B-12 (Cyanocobalamin (Vitamin B-12)) 1,000 Mcg Tablet 1,000 Mcg PO DAILY Synthroid (Levothyroxine Sodium) 50 Mcg Tablet 37.5 Mcg PO DAILY06 I have reviewed the current psychotropics carefully including drug interactions. Risk benefit ratio favors no change other than as noted in my dictated progress note. Diagnosis: Problems: (1) Anxiety disorder (2) Dementia in Alzheimer's disease with delusions (3) Dementia in Alzheimer's disease with depression (4) Dementia, vascular, with delusions (5) Dementia, vascular, with depression (6) Impulse control disorder (7) Urinary tract infection NANDA OLVERA MD Jul 15, 2018 22:51
[2018-07-16] MEDS: LEVOTHYROXINE 75 MCG TABLET PO SCH (05:51)
[2018-07-16 06:29] VITALS: BP 150/84
[2018-07-16 07:14] LABS: ALBUMIN 3.2 g/dL (3.4-5.0); ALBUMIN/GLOBULIN RATIO 0.8 (1.0-1.7); ALK PHOS 101 U/L (46-116); ALT (SGPT) 20 U/L (14-59); ANION GAP 7 (6-14); AST (SGOT) 16 U/L (15-37); BLOOD UREA NITROGEN 22 mg/dL (7-20); BUN/CREATININE RATIO 28 (6-20); CALCIUM 8.5 mg/dL (8.5-10.1); CARBON DIOXIDE 32 mmol/L (21-32); CHLORIDE 106 mmol/L (98-107); CREATININE 0.8 mg/dL (0.6-1.0); GFR 67.5; GLUCOSE 85 mg/dL (70-99); POTASSIUM 3.6 mmol/L (3.5-5.1); SODIUM 145 mmol/L (136-145); TOTAL BILIRUBIN 0.5 mg/dL (0.2-1.0); TOTAL PROTEIN 7.2 g/dL (6.4-8.2)
[2018-07-16 07:15] LABS: BASO # 0.1 x10^3/uL (0.0-0.2); BASO % 2 % (0-3); EOS # 0.1 x10^3/uL (0.0-0.7); EOS % 2 % (0-3); HEMOGLOBIN 13.6 g/dL (12.0-15.5); LYMPH % 24 % (24-48); MEAN CORPUSCULAR HEMOGLOBIN 32 pg (25-35); MEAN CORPUSCULAR HGB CONC 34 g/dL (31-37); MEAN CORPUSCULAR VOLUME 93 fL (79-100); MONO # 0.5 x10^3/uL (0.0-1.1); MONO % 11 % (0-9); NEUT # 2.6 x10^3uL (1.8-7.7); NEUT % 61 % (31-73); PLATELET COUNT 217 x10^3/uL (140-400); RED BLOOD COUNT 4.31 x10^6/uL (3.50-5.40); RED CELL DISTRIBUTION WIDTH 13.9 % (11.5-14.5); WHITE BLOOD COUNT 4.3 x10^3/uL (4.0-11.0)
[2018-07-16 07:18] LABS: VAL ACID 63 mcg/mL (50-100)
[2018-07-16] MEDS: CHOLECALCIFEROL (VITAMIN D3) 1,000 UNIT TABLET PO SCH (07:44)
[2018-07-16] MEDS: DIVALPROEX 125 MG CAP.SPRINK PO SCH ×2 (07:44→19:28)
[2018-07-16] MEDS: MEMANTINE 10 MG TABLET. PO SCH ×2 (07:45→19:28)
[2018-07-16] MEDS: CYANOCOBALAMIN (VITAMIN B-12) 1,000 MCG TABLET. PO SCH (07:45)
[2018-07-16] MEDS: SPIRONOLACTONE 25 MG TABLET PO SCH (07:45)
[2018-07-16] MEDS: FUROSEMIDE 20 MG TABLET PO SCH (07:45)
[2018-07-16] MEDS: FAMOTIDINE 20 MG TABLET PO SCH (07:46)
[2018-07-16] MEDS: LORazepam 0.5 MG TABLET PO SCH ×3 (07:48→19:29)
[2018-07-16 16:16] VITALS: BP 145/81
[2018-07-16] MEDS: DONEPEZIL HCL 10 MG TABLET PO SCH (19:28)
[2018-07-16] MEDS: SERTRALINE 25 MG TABLET. PO SCH (19:28)
--- NOTE | 2018-07-16 20:55 | PDOC ---
Exam Note: Pepe Note: Please also refer to the separate dictated note~for this date of service dictated separately.~Patient seen individually. Discussed the patient with Nursing staff reviewed the chart.~Reviewed interim history and current functioning. Reviewed vital signs,~Labs/ Radiology~and current medications noted below. Continue current treatment with the changes noted in the dictated addendum note Assessment: Vital Signs: Vital Signs Date Time Temp Pulse Resp B/P (MAP) Pulse Ox O2 Delivery O2 Flow Rate FiO2 07/16/18 16:16 97.8 80 20 145/81 (102) 96 07/14/18 15:51 Room Air I&O Intake and Output 07/16/18 07:00 Intake Total 890 ml Balance 890 ml Intake Oral 890 ml Labs: Laboratory Tests Test 07/16/18 06:42 White Blood Count 4.3 x10^3/uL (4.0-11.0) Red Blood Count 4.31 x10^6/uL (3.50-5.40) Hemoglobin 13.6 g/dL (12.0-15.5) Hematocrit 40.0 % (36.0-47.0) Mean Corpuscular Volume 93 fL (79-100) Mean Corpuscular Hemoglobin 32 pg (25-35) Mean Corpuscular Hemoglobin Concent 34 g/dL (31-37) Red Cell Distribution Width 13.9 % (11.5-14.5) Platelet Count 217 x10^3/uL (140-400) Neutrophils (%) (Auto) 61 % (31-73) Lymphocytes (%) (Auto) 24 % (24-48) Monocytes (%) (Auto) 11 % (0-9) H Eosinophils (%) (Auto) 2 % (0-3) Basophils (%) (Auto) 2 % (0-3) Neutrophils # (Auto) 2.6 x10^3uL (1.8-7.7) Lymphocytes # (Auto) 1.0 x10^3/uL (1.0-4.8) Monocytes # (Auto) 0.5 x10^3/uL (0.0-1.1) Eosinophils # (Auto) 0.1 x10^3/uL (0.0-0.7) Basophils # (Auto) 0.1 x10^3/uL (0.0-0.2) Sodium Level 145 mmol/L (136-145) Potassium Level 3.6 mmol/L (3.5-5.1) Chloride Level 106 mmol/L (98-107) Carbon Dioxide Level 32 mmol/L (21-32) Anion Gap 7 (6-14) Blood Urea Nitrogen 22 mg/dL (7-20) H Creatinine 0.8 mg/dL (0.6-1.0) Estimated GFR (Cockcroft-Gault) 67.5 BUN/Creatinine Ratio 28 (6-20) H Glucose Level 85 mg/dL (70-99) Calcium Level 8.5 mg/dL (8.5-10.1) Total Bilirubin 0.5 mg/dL (0.2-1.0) Aspartate Amino Transferase (AST) 16 U/L (15-37) Alanine Aminotransferase (ALT) 20 U/L (14-59) Alkaline Phosphatase 101 U/L (46-116) Total Protein 7.2 g/dL (6.4-8.2) Albumin 3.2 g/dL (3.4-5.0) L Albumin/Globulin Ratio 0.8 (1.0-1.7) L Valproic Acid Level 63 mcg/mL (50-100) Valproic Acid Last Dose Date 07/15/18 Valproic Acid Last Dose Time 2100 Current Medications: Meds: Current Medications Acetaminophen (Tylenol) 650 mg PRN Q6HRS PRN PO PAIN / TEMP; Start 07/12/18 at 17:45 Multi-Ingredient Ointment (Analgesic [place]) 1 jazlyn PRN QID PRN TP MUSCLE PAIN; Start 07/12/18 at 17:45 Al Hydroxide/Mg Hydroxide (Mylanta Plus Xs) 15 ml PRN AFTMEALHC PRN PO DYSPEPSIA; Start 07/12/18 at 17:45 Magnesium Hydroxide (Milk Of Magnesia) 2,400 mg PRN QHS PRN PO CONSTIPATION; Start 07/12/18 at 17:45 Influenza Virus Vaccine (Afluria Trivalent [id number] Syringe) 0.5 ml ONCE ONCE VAX IM Last administered on 07/13/18at 15:24; Start 07/13/18 at 09:00; Stop 07/13/18 at 09:01; Status DC Cyanocobalamin (Vitamin B-12) 1,000 mcg DAILY PO Last administered on 07:45; Start 07/13/18 at 09:00 Furosemide (Lasix) 20 mg DAILY PO Last administered on 07/16/18 07:45; Start 07/13/18 at 09:00 Lorazepam (Ativan) 0.25 mg TID PO Last administered on 07/16/18 19:29; Start 07/12/18 at 21:00 Vitamin D (Vitamin D3) 1,000 unit DAILY PO Last administered on 07/16/18 07: 44; Start 07/13/18 at 09:00 Divalproex Sodium (Depakote Sprinkles) 375 mg BID PO Last administered on 07/13 10:25; Start 07/12/18 at 21:00; Stop 07/13/18 at 12:50; Status DC Donepezil HCl (Aricept) 10 mg QHS PO Last administered on 07/16/18 19:28; Start 07/12/18 at 21:00 Famotidine (Pepcid) 20 mg DAILY PO Last administered on 07/16/18 07:46; Start 07/13/18 at 09:00 Levothyroxine Sodium (Synthroid) 37.5 mcg DAILY06 PO Last administered on 07/16 05:51; Start 07/13/18 at 06:00 Memantine (Namenda) 10 mg BID PO Last administered on 07/16/18 19:28; Start 07/12/18 at 21:00 Sertraline HCl (Zoloft) 25 mg QHS PO Last administered on 07/16/18 19:28; Start 07/12/18 at 21:00 Spironolactone (Aldactone) 12.5 mg DAILY PO Last administered on 07/16/18 07: 45; Start 07/13/18 at 09:00 Divalproex Sodium (Depakote Sprinkles) 500 mg BID PO Last administered on 07/16 19:28; Start 07/13/18 at 21:00 Active Scripts Active Reported Zoloft (Sertraline Hcl) 25 Mg Tablet 25 Mg PO QHS Aricept (Donepezil Hcl) 10 Mg Tablet 10 Mg PO QHS Ativan (Lorazepam) 1 Mg Tablet 0.25 Mg PO TID Depakote Sprinkle (Divalproex Sodium) 125 Mg Cap.sprink 375 Mg PO BID Namenda (Memantine Hcl) 10 Mg Tablet 10 Mg PO BID Vitamin D (Cholecalciferol (Vitamin D3)) 1,000 Unit Capsule 1,000 Unit PO DAILY Aldactone (Spironolactone) 25 Mg Tablet 12.5 Mg PO DAILY Lasix (Furosemide) 20 Mg Tablet 20 Mg PO DAILY Pepcid (Famotidine) 20 Mg Tablet 20 Mg PO DAILY Vitamin B-12 (Cyanocobalamin (Vitamin B-12)) 1,000 Mcg Tablet 1,000 Mcg PO DAILY Synthroid (Levothyroxine Sodium) 50 Mcg Tablet 37.5 Mcg PO DAILY06 I have reviewed the current psychotropics carefully including drug interactions. Risk benefit ratio favors no change other than as noted in my dictated progress note. Diagnosis: Problems: (1) Anxiety disorder (2) Dementia in Alzheimer's disease with delusions (3) Dementia in Alzheimer's disease with depression (4) Dementia, vascular, with delusions (5) Dementia, vascular, with depression (6) Impulse control disorder (7) Urinary tract infection NANDA OLVERA MD Jul 16, 2018 20:55
--- NOTE | 2018-07-17 03:54 | PN ---
DATE: 07/15/2018 PSYCHIATRIC PROGRESS NOTE This is a late entry of 07/15/2018 covers elements not covered in my initial note. SUBJECTIVE: I met with the patient in the evening. The patient slept 8-3/4 hours previous night. The patient remains confused, not aggressive. REVIEW OF SYSTEMS: Ambulation impaired, in wheelchair. No CV, , pulmonary, eye, ENT system symptoms on review. Reliability poor. MENTAL STATUS EXAM: Oriented to herself. Insight, judgment, recent and remote memory, attention, concentration, fund of knowledge poor, consistent with her diagnosis mentioned in my initial note. PLAN: No change from initial note. MAN Nataly OLVERA MD DR: MACY/aretha JOB#: [id number] / [id number]
[2018-07-17] MEDS: LEVOTHYROXINE 75 MCG TABLET PO SCH (06:13)
[2018-07-17 06:39] VITALS: BP 158/87
[2018-07-17] MEDS: DIVALPROEX 125 MG CAP.SPRINK PO SCH ×2 (08:17→19:37)
[2018-07-17] MEDS: FUROSEMIDE 20 MG TABLET PO SCH (08:18)
[2018-07-17] MEDS: MEMANTINE 10 MG TABLET. PO SCH ×2 (08:18→19:37)
[2018-07-17] MEDS: CYANOCOBALAMIN (VITAMIN B-12) 1,000 MCG TABLET. PO SCH (08:18)
[2018-07-17] MEDS: FAMOTIDINE 20 MG TABLET PO SCH (08:18)
[2018-07-17] MEDS: CHOLECALCIFEROL (VITAMIN D3) 1,000 UNIT TABLET PO SCH (08:19)
[2018-07-17] MEDS: LORazepam 0.5 MG TABLET PO SCH ×3 (08:21→20:11)
[2018-07-17] MEDS: SPIRONOLACTONE 25 MG TABLET PO SCH (08:21)
[2018-07-17 16:22] VITALS: BP 132/78
[2018-07-17] MEDS: DONEPEZIL HCL 10 MG TABLET PO SCH (19:37)
[2018-07-17] MEDS: SERTRALINE 50 MG TABLET. PO SCH (20:12)
--- NOTE | 2018-07-17 23:19 | PN ---
DATE: 07/16/2018 PSYCHIATRIC PROGRESS NOTE This late entry 07/16/2018 covers elements not covered in my initial note. SUBJECTIVE: I met with the patient in the evening. The patient slept 7-1/2 hours previous night. She remains confused, somewhat withdrawn, less aggressive. REVIEW OF SYSTEMS: No CV, , eye, ENT or pulmonary system symptoms on review. Reliability poor. Gait unsteady. MENTAL STATUS EXAM: Oriented to herself. Insight, judgment, recent and remote memory, attention, concentration, fund of knowledge poor, consistent with her diagnosis mentioned in my initial note. IMPRESSION: Major neurocognitive disorder, Alzheimer, vascular with delusion, depression, behavioral disturbance. Rest unchanged. PLAN: No change from initial note. Check CBC, CMP, valproic acid level 07/16/2018 and adjust thereafter to reach therapeutic level for the Depakote. MAN Nataly OLVERA MD DR: MACY/aretha JOB#: [id number] / [id number]
[2018-07-18] MEDS: LEVOTHYROXINE 75 MCG TABLET PO SCH (05:28)
[2018-07-18 06:30] VITALS: BP 138/62
[2018-07-18] MEDS: FAMOTIDINE 20 MG TABLET PO SCH (08:30)
[2018-07-18] MEDS: SPIRONOLACTONE 25 MG TABLET PO SCH (08:30)
[2018-07-18] MEDS: DIVALPROEX 125 MG CAP.SPRINK PO SCH ×2 (08:31→20:03)
[2018-07-18] MEDS: CYANOCOBALAMIN (VITAMIN B-12) 1,000 MCG TABLET. PO SCH (08:31)
[2018-07-18] MEDS: FUROSEMIDE 20 MG TABLET PO SCH (08:31)
[2018-07-18] MEDS: CHOLECALCIFEROL (VITAMIN D3) 1,000 UNIT TABLET PO SCH (08:31)
[2018-07-18] MEDS: MEMANTINE 10 MG TABLET. PO SCH ×2 (08:31→20:03)
[2018-07-18] MEDS: LORazepam 0.5 MG TABLET PO SCH ×3 (08:33→20:07)
[2018-07-18 16:48] VITALS: BP 135/67
[2018-07-18] MEDS: DONEPEZIL HCL 10 MG TABLET PO SCH (20:03)
[2018-07-18] MEDS: SERTRALINE 50 MG TABLET. PO SCH (20:03)
--- NOTE | 2018-07-18 23:21 | PDOC ---
Exam Note: Pepe Note: Please also refer to the separate dictated note~for this date of service dictated separately.~Patient seen individually. Discussed the patient with Nursing staff reviewed the chart.~Reviewed interim history and current functioning. Reviewed vital signs,~Labs/ Radiology~and current medications noted below. Continue current treatment with the changes noted in the dictated addendum note Assessment: Vital Signs: Vital Signs Date Time Temp Pulse Resp B/P (MAP) Pulse Ox O2 Delivery O2 Flow Rate FiO2 07/18/18 16:48 98.0 77 16 135/67 (89) 96 07/14/18 15:51 Room Air I&O Intake and Output 07/18/18 07:00 Intake Total 480 ml Output Total 1 ml Balance 479 ml Intake Oral 480 ml Output Stool Total 1 ml Current Medications: Meds: Current Medications Acetaminophen (Tylenol) 650 mg PRN Q6HRS PRN PO PAIN / TEMP; Start 07/12/18 at 17:45 Multi-Ingredient Ointment (Analgesic [place]) 1 jazlyn PRN QID PRN TP MUSCLE PAIN; Start 07/12/18 at 17:45 Al Hydroxide/Mg Hydroxide (Mylanta Plus Xs) 15 ml PRN AFTMEALHC PRN PO DYSPEPSIA; Start 07/12/18 at 17:45 Magnesium Hydroxide (Milk Of Magnesia) 2,400 mg PRN QHS PRN PO CONSTIPATION; Start 07/12/18 at 17:45 Influenza Virus Vaccine (Afluria Trivalent [id number] Syringe) 0.5 ml ONCE ONCE VAX IM Last administered on 07/13/18at 15:24; Start 07/13/18 at 09:00; Stop 07/13/18 at 09:01; Status DC Cyanocobalamin (Vitamin B-12) 1,000 mcg DAILY PO Last administered on at 08:31; Start 07/13/18 at 09:00 Furosemide (Lasix) 20 mg DAILY PO Last administered on 07/18/18at 08:31; Start 07/13/18 at 09:00 Lorazepam (Ativan) 0.25 mg TID PO Last administered on 07/18/18at 14:34; Start 07/12/18 at 21:00; Stop 07/18/18 at 16:24; Status DC Vitamin D (Vitamin D3) 1,000 unit DAILY PO Last administered on 07/18/18 08: 31; Start 07/13/18 at 09:00 Divalproex Sodium (Depakote Sprinkles) 375 mg BID PO Last administered on 07/13 10:25; Start 07/12/18 at 21:00; Stop 07/13/18 at 12:50; Status DC Donepezil HCl (Aricept) 10 mg QHS PO Last administered on 07/18/18 20:03; Start 07/12/18 at 21:00 Famotidine (Pepcid) 20 mg DAILY PO Last administered on 07/18/18 08:30; Start 07/13/18 at 09:00 Levothyroxine Sodium (Synthroid) 37.5 mcg DAILY06 PO Last administered on 07/18 05:28; Start 07/13/18 at 06:00 Memantine (Namenda) 10 mg BID PO Last administered on 07/18/18 20:03; Start 07/12/18 at 21:00 Sertraline HCl (Zoloft) 25 mg QHS PO Last administered on 07/16/18 19:28; Start 07/12/18 at 21:00; Stop 07/17/18 at 16:31; Status DC Spironolactone (Aldactone) 12.5 mg DAILY PO Last administered on 07/18/18 08: 30; Start 07/13/18 at 09:00 Divalproex Sodium (Depakote Sprinkles) 500 mg BID PO Last administered on 07/18 20:03; Start 07/13/18 at 21:00 Sertraline HCl (Zoloft) 50 mg QHS PO Last administered on 07/18/18 20:03; Start 07/17/18 at 21:00 Lorazepam (Ativan) 0.25 mg BID PO Last administered on 07/18/18 20:07; Start 07/18/18 at 21:00 Active Scripts Active Reported Zoloft (Sertraline Hcl) 25 Mg Tablet 25 Mg PO QHS Aricept (Donepezil Hcl) 10 Mg Tablet 10 Mg PO QHS Ativan (Lorazepam) 1 Mg Tablet 0.25 Mg PO TID Depakote Sprinkle (Divalproex Sodium) 125 Mg Cap.sprink 375 Mg PO BID Namenda (Memantine Hcl) 10 Mg Tablet 10 Mg PO BID Vitamin D (Cholecalciferol (Vitamin D3)) 1,000 Unit Capsule 1,000 Unit PO DAILY Aldactone (Spironolactone) 25 Mg Tablet 12.5 Mg PO DAILY Lasix (Furosemide) 20 Mg Tablet 20 Mg PO DAILY Pepcid (Famotidine) 20 Mg Tablet 20 Mg PO DAILY Vitamin B-12 (Cyanocobalamin (Vitamin B-12)) 1,000 Mcg Tablet 1,000 Mcg PO DAILY Synthroid (Levothyroxine Sodium) 50 Mcg Tablet 37.5 Mcg PO DAILY06 I have reviewed the current psychotropics carefully including drug interactions. Risk benefit ratio favors no change other than as noted in my dictated progress note. Diagnosis: Problems: (1) Anxiety disorder (2) Dementia in Alzheimer's disease with delusions (3) Dementia in Alzheimer's disease with depression (4) Dementia, vascular, with delusions (5) Dementia, vascular, with depression (6) Impulse control disorder (7) Urinary tract infection NANDA OLVERA MD Jul 18, 2018 23:21
--- NOTE | 2018-07-19 05:17 | PN ---
DATE: 07/17/2018 This is a late entry for 07/17/2018 covers elements not covered in my initial note. SUBJECTIVE: I met with the patient in the evening. The patient slept 7-1/2 hours previous evening, remains confused, quiet, not aggressive, compliant with medications. Valproic acid level on the was 63, therapeutic. REVIEW OF SYSTEMS: No CV, , eye, ENT, pulmonary system symptoms on review. Reliability poor. MENTAL STATUS EXAM: Oriented to herself. Insight, judgment, recent and remote memory, attention, concentration, fund of knowledge poor, consistent with her diagnosis mentioned in my initial note. IMPRESSION: Major neurocognitive disorder, Alzheimer, vascular with delusion, depression, behavioral disturbance. Rest unchanged. PLAN: Continue psychotropics from initial note. Increase Zoloft from 25 mg at bedtime to 50 mg at bedtime and may taper the Ativan gradually and she is currently on 0.25 mg 3 times a day. NANDA OLVERA MD DR: MACY/aretha JOB#: [id number] / [id number]
[2018-07-19 06:11] VITALS: BP 149/79
[2018-07-19] MEDS: LEVOTHYROXINE 75 MCG TABLET PO SCH (06:36)
[2018-07-19] MEDS: FAMOTIDINE 20 MG TABLET PO SCH (09:12)
[2018-07-19] MEDS: DIVALPROEX 125 MG CAP.SPRINK PO SCH ×2 (09:13→20:16)
[2018-07-19] MEDS: CHOLECALCIFEROL (VITAMIN D3) 1,000 UNIT TABLET PO SCH (09:13)
[2018-07-19] MEDS: FUROSEMIDE 20 MG TABLET PO SCH (09:13)
[2018-07-19] MEDS: MEMANTINE 10 MG TABLET. PO SCH ×2 (09:13→20:17)
[2018-07-19] MEDS: SPIRONOLACTONE 25 MG TABLET PO SCH (09:13)
[2018-07-19] MEDS: CYANOCOBALAMIN (VITAMIN B-12) 1,000 MCG TABLET. PO SCH (09:13)
[2018-07-19] MEDS: LORazepam 0.5 MG TABLET PO SCH ×2 (09:15→20:21)
[2018-07-19 16:34] VITALS: BP 125/69
[2018-07-19] MEDS: SERTRALINE 50 MG TABLET. PO SCH (20:17)
[2018-07-19] MEDS: DONEPEZIL HCL 10 MG TABLET PO SCH (20:21)
--- NOTE | 2018-07-19 23:24 | PDOC ---
Exam Note: Pepe Note: Please also refer to the separate dictated note~for this date of service dictated separately.~Patient seen individually. Discussed the patient with Nursing staff reviewed the chart.~Reviewed interim history and current functioning. Reviewed vital signs,~Labs/ Radiology~and current medications noted below. Continue current treatment with the changes noted in the dictated addendum note Assessment: Vital Signs: Vital Signs Date Time Temp Pulse Resp B/P (MAP) Pulse Ox O2 Delivery O2 Flow Rate FiO2 07/19/18 16:34 97.6 84 19 125/69 (87) 99 07/14/18 15:51 Room Air I&O Intake and Output 07/19/18 07:00 Intake Total 1320 ml Balance 1320 ml Intake Oral 1320 ml # Bowel Movements 1 Current Medications: Meds: Current Medications Acetaminophen (Tylenol) 650 mg PRN Q6HRS PRN PO PAIN / TEMP; Start 07/12/18 at 17:45 Multi-Ingredient Ointment (Analgesic [place]) 1 jazlyn PRN QID PRN TP MUSCLE PAIN; Start 07/12/18 at 17:45 Al Hydroxide/Mg Hydroxide (Mylanta Plus Xs) 15 ml PRN AFTMEALHC PRN PO DYSPEPSIA; Start 07/12/18 at 17:45 Magnesium Hydroxide (Milk Of Magnesia) 2,400 mg PRN QHS PRN PO CONSTIPATION; Start 07/12/18 at 17:45 Influenza Virus Vaccine (Afluria Trivalent [id number] Syringe) 0.5 ml ONCE ONCE VAX IM Last administered on 07/13/18at 15:24; Start 07/13/18 at 09:00; Stop 07/13/18 at 09:01; Status DC Cyanocobalamin (Vitamin B-12) 1,000 mcg DAILY PO Last administered on at 09:13; Start 07/13/18 at 09:00 Furosemide (Lasix) 20 mg DAILY PO Last administered on 07/19/18at 09:13; Start 07/13/18 at 09:00 Lorazepam (Ativan) 0.25 mg TID PO Last administered on 07/18/18at 14:34; Start 07/12/18 at 21:00; Stop 07/18/18 at 16:24; Status DC Vitamin D (Vitamin D3) 1,000 unit DAILY PO Last administered on 07/19/18at 09: 13; Start 07/13/18 at 09:00 Divalproex Sodium (Depakote Sprinkles) 375 mg BID PO Last administered on 07/13at 10:25; Start 07/12/18 at 21:00; Stop 07/13/18 at 12:50; Status DC Donepezil HCl (Aricept) 10 mg QHS PO Last administered on 07/19/18at 20:21; Start 07/12/18 at 21:00 Famotidine (Pepcid) 20 mg DAILY PO Last administered on 07/19/18at 09:12; Start 07/13/18 at 09:00 Levothyroxine Sodium (Synthroid) 37.5 mcg DAILY06 PO Last administered on 07/19at 06:36; Start 07/13/18 at 06:00 Memantine (Namenda) 10 mg BID PO Last administered on 07/19/18at 20:17; Start 07/12/18 at 21:00 Sertraline HCl (Zoloft) 25 mg QHS PO Last administered on 07/16/18at 19:28; Start 07/12/18 at 21:00; Stop 07/17/18 at 16:31; Status DC Spironolactone (Aldactone) 12.5 mg DAILY PO Last administered on 07/19/18at 09: 13; Start 07/13/18 at 09:00 Divalproex Sodium (Depakote Sprinkles) 500 mg BID PO Last administered on 07/19at 20:16; Start 07/13/18 at 21:00 Sertraline HCl (Zoloft) 50 mg QHS PO Last administered on 07/19/18at 20:17; Start 07/17/18 at 21:00 Lorazepam (Ativan) 0.25 mg BID PO Last administered on 07/19/18at 20:21; Start 07/18/18 at 21:00; Stop 07/21/18 at 21:00 Lorazepam (Ativan) 0.25 mg DAILY PO ; Start 07/22/18 at 09:00; Stop 07/25/18 at 09:00 Active Scripts Active Reported Zoloft (Sertraline Hcl) 25 Mg Tablet 25 Mg PO QHS Aricept (Donepezil Hcl) 10 Mg Tablet 10 Mg PO QHS Ativan (Lorazepam) 1 Mg Tablet 0.25 Mg PO TID Depakote Sprinkle (Divalproex Sodium) 125 Mg Cap.sprink 375 Mg PO BID Namenda (Memantine Hcl) 10 Mg Tablet 10 Mg PO BID Vitamin D (Cholecalciferol (Vitamin D3)) 1,000 Unit Capsule 1,000 Unit PO DAILY Aldactone (Spironolactone) 25 Mg Tablet 12.5 Mg PO DAILY Lasix (Furosemide) 20 Mg Tablet 20 Mg PO DAILY Pepcid (Famotidine) 20 Mg Tablet 20 Mg PO DAILY Vitamin B-12 (Cyanocobalamin (Vitamin B-12)) 1,000 Mcg Tablet 1,000 Mcg PO DAILY Synthroid (Levothyroxine Sodium) 50 Mcg Tablet 37.5 Mcg PO DAILY06 I have reviewed the current psychotropics carefully including drug interactions. Risk benefit ratio favors no change other than as noted in my dictated progress note. Diagnosis: Problems: (1) Anxiety disorder (2) Dementia in Alzheimer's disease with delusions (3) Dementia in Alzheimer's disease with depression (4) Dementia, vascular, with delusions (5) Dementia, vascular, with depression (6) Impulse control disorder (7) Urinary tract infection NANDA OLVERA MD Jul 19, 2018 23:24
--- NOTE | 2018-07-19 23:25 | PN ---
DATE: 07/18/2018 PSYCHIATRIC PROGRESS NOTE This late entry 07/18/2018 covers elements not covered in my initial note. SUBJECTIVE: I met with the patient in the evening. The patient slept 9-1/4 hours previous night. She has been sleeping off and on in her chair during the day and staff had sat next to her since she is a fall risk. She takes the medications with perseverance by nursing staff. REVIEW OF SYSTEMS: Ambulation somewhat impaired. No CV, , pulmonary, eye, ENT system symptoms on review. MENTAL STATUS EXAM: Oriented to herself. Insight, judgment, recent and remote memory, attention, concentration, fund of knowledge poor, consistent with her diagnosis mentioned in my initial note. IMPRESSION: Major neurocognitive disorder, Alzheimer, vascular with delusion, depression, behavioral disturbance; anxiety disorder, unspecified; impulse control disorder, unspecified. Rest unchanged. PLAN: Defer UTI treatment and medical management to Dr. Reed. Reduce the Ativan from 0.25 t.i.d. to 0.25 twice a day and gradually taper and stop it. Given her daytime sedation, maintain Namenda 10 b.i.d., Depakote 500 b.i.d., level therapeutic at 63. Add Aricept 10 mg a day, Zoloft 50 mg a day. If she is still sedated, may change Zoloft to Wellbutrin, which should be more activating. NANDA OLVERA MD DR: MACY/arteha JOB#: [id number] / [id number]
[2018-07-20 06:04] VITALS: BP 173/80
[2018-07-20] MEDS: LEVOTHYROXINE 75 MCG TABLET PO SCH (06:15)
[2018-07-20] MEDS: DIVALPROEX 125 MG CAP.SPRINK PO SCH ×2 (08:04→20:03)
[2018-07-20] MEDS: SPIRONOLACTONE 25 MG TABLET PO SCH (08:04)
[2018-07-20] MEDS: CYANOCOBALAMIN (VITAMIN B-12) 1,000 MCG TABLET. PO SCH (08:05)
[2018-07-20] MEDS: CHOLECALCIFEROL (VITAMIN D3) 1,000 UNIT TABLET PO SCH (08:05)
[2018-07-20] MEDS: FAMOTIDINE 20 MG TABLET PO SCH (08:05)
[2018-07-20] MEDS: MEMANTINE 10 MG TABLET. PO SCH ×2 (08:05→20:03)
[2018-07-20] MEDS: FUROSEMIDE 20 MG TABLET PO SCH (08:05)
[2018-07-20] MEDS: LORazepam 0.5 MG TABLET PO SCH ×2 (08:07→20:05)
[2018-07-20 16:15] VITALS: BP 132/85
[2018-07-20] MEDS: SERTRALINE 50 MG TABLET. PO SCH (20:03)
[2018-07-20] MEDS: DONEPEZIL HCL 10 MG TABLET PO SCH (20:03)
--- NOTE | 2018-07-20 23:44 | PDOC ---
Exam Note: Pepe Note: Please also refer to the separate dictated note~for this date of service dictated separately.~Patient seen individually. Discussed the patient with Nursing staff reviewed the chart.~Reviewed interim history and current functioning. Reviewed vital signs,~Labs/ Radiology~and current medications noted below. Continue current treatment with the changes noted in the dictated addendum note Assessment: Vital Signs: Vital Signs Date Time Temp Pulse Resp B/P (MAP) Pulse Ox O2 Delivery O2 Flow Rate FiO2 07/20/18 16:15 97.2 70 18 132/85 (101) 94 07/14/18 15:51 Room Air I&O Intake and Output 07/20/18 07:00 Intake Total 840 ml Balance 840 ml Intake Oral 840 ml Current Medications: Meds: Current Medications Acetaminophen (Tylenol) 650 mg PRN Q6HRS PRN PO PAIN / TEMP; Start 07/12/18 at 17:45 Multi-Ingredient Ointment (Analgesic [place]) 1 jazlyn PRN QID PRN TP MUSCLE PAIN; Start 07/12/18 at 17:45 Al Hydroxide/Mg Hydroxide (Mylanta Plus Xs) 15 ml PRN AFTMEALHC PRN PO DYSPEPSIA; Start 07/12/18 at 17:45 Magnesium Hydroxide (Milk Of Magnesia) 2,400 mg PRN QHS PRN PO CONSTIPATION; Start 07/12/18 at 17:45 Influenza Virus Vaccine (Afluria Trivalent [id number] Syringe) 0.5 ml ONCE ONCE VAX IM Last administered on 07/13/18at 15:24; Start 07/13/18 at 09:00; Stop 07/13/18 at 09:01; Status DC Cyanocobalamin (Vitamin B-12) 1,000 mcg DAILY PO Last administered on at 08:05; Start 07/13/18 at 09:00 Furosemide (Lasix) 20 mg DAILY PO Last administered on 07/20/18at 08:05; Start 07/13/18 at 09:00 Lorazepam (Ativan) 0.25 mg TID PO Last administered on 07/18/18at 14:34; Start 07/12/18 at 21:00; Stop 07/18/18 at 16:24; Status DC Vitamin D (Vitamin D3) 1,000 unit DAILY PO Last administered on 07/20/18at 08: 05; Start 07/13/18 at 09:00 Divalproex Sodium (Depakote Sprinkles) 375 mg BID PO Last administered on 07/13at 10:25; Start 07/12/18 at 21:00; Stop 07/13/18 at 12:50; Status DC Donepezil HCl (Aricept) 10 mg QHS PO Last administered on 07/20/18 20:03; Start 07/12/18 at 21:00 Famotidine (Pepcid) 20 mg DAILY PO Last administered on 07/20/18at 08:05; Start 07/13/18 at 09:00 Levothyroxine Sodium (Synthroid) 37.5 mcg DAILY06 PO Last administered on 07/20 06:15; Start 07/13/18 at 06:00 Memantine (Namenda) 10 mg BID PO Last administered on 07/20/18 20:03; Start 07/12/18 at 21:00 Sertraline HCl (Zoloft) 25 mg QHS PO Last administered on 07/16/18at 19:28; Start 07/12/18 at 21:00; Stop 07/17/18 at 16:31; Status DC Spironolactone (Aldactone) 12.5 mg DAILY PO Last administered on 07/20/18 08: 04; Start 07/13/18 at 09:00 Divalproex Sodium (Depakote Sprinkles) 500 mg BID PO Last administered on 07/20at 20:03; Start 07/13/18 at 21:00 Sertraline HCl (Zoloft) 50 mg QHS PO Last administered on 07/20/18at 20:03; Start 07/17/18 at 21:00 Lorazepam (Ativan) 0.25 mg BID PO Last administered on 07/20/18at 20:05; Start 07/18/18 at 21:00; Stop 07/21/18 at 21:00 Lorazepam (Ativan) 0.25 mg DAILY PO ; Start 07/22/18 at 09:00; Stop 07/25/18 at 09:00 Active Scripts Active Reported Zoloft (Sertraline Hcl) 25 Mg Tablet 25 Mg PO QHS Aricept (Donepezil Hcl) 10 Mg Tablet 10 Mg PO QHS Ativan (Lorazepam) 1 Mg Tablet 0.25 Mg PO TID Depakote Sprinkle (Divalproex Sodium) 125 Mg Cap.sprink 375 Mg PO BID Namenda (Memantine Hcl) 10 Mg Tablet 10 Mg PO BID Vitamin D (Cholecalciferol (Vitamin D3)) 1,000 Unit Capsule 1,000 Unit PO DAILY Aldactone (Spironolactone) 25 Mg Tablet 12.5 Mg PO DAILY Lasix (Furosemide) 20 Mg Tablet 20 Mg PO DAILY Pepcid (Famotidine) 20 Mg Tablet 20 Mg PO DAILY Vitamin B-12 (Cyanocobalamin (Vitamin B-12)) 1,000 Mcg Tablet 1,000 Mcg PO DAILY Synthroid (Levothyroxine Sodium) 50 Mcg Tablet 37.5 Mcg PO DAILY06 I have reviewed the current psychotropics carefully including drug interactions. Risk benefit ratio favors no change other than as noted in my dictated progress note. Diagnosis: Problems: (1) Anxiety disorder (2) Dementia in Alzheimer's disease with delusions (3) Dementia in Alzheimer's disease with depression (4) Dementia, vascular, with delusions (5) Dementia, vascular, with depression (6) Impulse control disorder (7) Urinary tract infection NANDA OLVERA MD Jul 20, 2018 23:44
--- NOTE | 2018-07-20 23:55 | PN ---
DATE: 07/19/2018 PSYCHIATRIC PROGRESS NOTE This late entry 07/19/2018 covers elements not covered in my initial note. SUBJECTIVE: I met with the patient in the evening. The patient slept 7 hours previous night. She remains somewhat anxious, confused, restless, spending much time in chair as she attempts to walk and is a fall risk. Appetite is fair. REVIEW OF SYSTEMS: No CV, , eye, ENT or pulmonary system symptoms on review. Reliability poor. MENTAL STATUS EXAM: Oriented to herself. Insight, judgment, recent and remote memory, attention, concentration, fund of knowledge poor, consistent with her diagnosis mentioned in my initial note. IMPRESSION: Major neurocognitive disorder, Alzheimer, vascular with delusion, depression, behavioral disturbance. Rest unchanged. PLAN: Taper and stop the Ativan as it increases her fall risk and could cause paradoxical disinhibition. We will reduce Ativan 0.25 b.i.d. down to once a day after she has been under b.i.d. for 3 days, then 3 days later stop it. Continue rest of his psychotropics from initial note. MAN Nataly OLVERA MD DR: MACY/aretha JOB#: [id number] / [id number]
[2018-07-21] MEDS: LEVOTHYROXINE 75 MCG TABLET PO SCH (06:16)
[2018-07-21 06:27] VITALS: BP 140/85
[2018-07-21] MEDS: MEMANTINE 10 MG TABLET. PO SCH ×2 (08:07→19:50)
[2018-07-21] MEDS: FUROSEMIDE 20 MG TABLET PO SCH (08:08)
[2018-07-21] MEDS: FAMOTIDINE 20 MG TABLET PO SCH (08:08)
[2018-07-21] MEDS: CHOLECALCIFEROL (VITAMIN D3) 1,000 UNIT TABLET PO SCH (08:08)
[2018-07-21] MEDS: CYANOCOBALAMIN (VITAMIN B-12) 1,000 MCG TABLET. PO SCH (08:08)
[2018-07-21] MEDS: SPIRONOLACTONE 25 MG TABLET PO SCH (08:08)
[2018-07-21] MEDS: DIVALPROEX 125 MG CAP.SPRINK PO SCH ×2 (08:08→19:50)
[2018-07-21] MEDS: LORazepam 0.5 MG TABLET PO SCH ×2 (08:10→19:52)
[2018-07-21 15:58] VITALS: BP 136/68
[2018-07-21] MEDS: DONEPEZIL HCL 10 MG TABLET PO SCH (19:50)
[2018-07-21] MEDS: SERTRALINE 50 MG TABLET. PO SCH (19:50)
--- NOTE | 2018-07-21 23:26 | PDOC ---
Exam Note: Pepe Note: Please also refer to the separate dictated note~for this date of service dictated separately.~Patient seen individually. Discussed the patient with Nursing staff reviewed the chart.~Reviewed interim history and current functioning. Reviewed vital signs,~Labs/ Radiology~and current medications noted below. Continue current treatment with the changes noted in the dictated addendum note Assessment: Vital Signs: Vital Signs Date Time Temp Pulse Resp B/P (MAP) Pulse Ox O2 Delivery O2 Flow Rate FiO2 07/21/18 15:58 97.8 75 17 136/68 (90) 95 Room Air I&O Intake and Output 07/21/18 07:00 Intake Total 580 ml Balance 580 ml Intake Oral 580 ml # Voids 1 Current Medications: Meds: Current Medications Acetaminophen (Tylenol) 650 mg PRN Q6HRS PRN PO PAIN / TEMP; Start 07/12/18 at 17:45 Multi-Ingredient Ointment (Analgesic [place]) 1 jazlyn PRN QID PRN TP MUSCLE PAIN; Start 07/12/18 at 17:45 Al Hydroxide/Mg Hydroxide (Mylanta Plus Xs) 15 ml PRN AFTMEALHC PRN PO DYSPEPSIA; Start 07/12/18 at 17:45 Magnesium Hydroxide (Milk Of Magnesia) 2,400 mg PRN QHS PRN PO CONSTIPATION; Start 07/12/18 at 17:45 Influenza Virus Vaccine (Afluria Trivalent [id number] Syringe) 0.5 ml ONCE ONCE VAX IM Last administered on 07/13/18at 15:24; Start 07/13/18 at 09:00; Stop 07/13/18 at 09:01; Status DC Cyanocobalamin (Vitamin B-12) 1,000 mcg DAILY PO Last administered on at 08:08; Start 07/13/18 at 09:00 Furosemide (Lasix) 20 mg DAILY PO Last administered on 07/21/18at 08:08; Start 07/13/18 at 09:00 Lorazepam (Ativan) 0.25 mg TID PO Last administered on 07/18/18at 14:34; Start 07/12/18 at 21:00; Stop 07/18/18 at 16:24; Status DC Vitamin D (Vitamin D3) 1,000 unit DAILY PO Last administered on 07/21/18at 08: 08; Start 07/13/18 at 09:00 Divalproex Sodium (Depakote Sprinkles) 375 mg BID PO Last administered on 07/13at 10:25; Start 07/12/18 at 21:00; Stop 07/13/18 at 12:50; Status DC Donepezil HCl (Aricept) 10 mg QHS PO Last administered on 07/21/18at 19:50; Start 07/12/18 at 21:00 Famotidine (Pepcid) 20 mg DAILY PO Last administered on 07/21/18at 08:08; Start 07/13/18 at 09:00 Levothyroxine Sodium (Synthroid) 37.5 mcg DAILY06 PO Last administered on 07/21at 06:16; Start 07/13/18 at 06:00 Memantine (Namenda) 10 mg BID PO Last administered on 07/21/18at 19:50; Start 07/12/18 at 21:00 Sertraline HCl (Zoloft) 25 mg QHS PO Last administered on 07/16/18at 19:28; Start 07/12/18 at 21:00; Stop 07/17/18 at 16:31; Status DC Spironolactone (Aldactone) 12.5 mg DAILY PO Last administered on 07/21/18at 08: 08; Start 07/13/18 at 09:00 Divalproex Sodium (Depakote Sprinkles) 500 mg BID PO Last administered on 07/21at 19:50; Start 07/13/18 at 21:00 Sertraline HCl (Zoloft) 50 mg QHS PO Last administered on 07/21/18at 19:50; Start 07/17/18 at 21:00 Lorazepam (Ativan) 0.25 mg BID PO Last administered on 07/21/18at 19:52; Start 07/18/18 at 21:00; Stop 07/21/18 at 21:00; Status DC Lorazepam (Ativan) 0.25 mg DAILY PO ; Start 07/22/18 at 09:00; Stop 07/25/18 at 09:00 Active Scripts Active Reported Zoloft (Sertraline Hcl) 25 Mg Tablet 25 Mg PO QHS Aricept (Donepezil Hcl) 10 Mg Tablet 10 Mg PO QHS Ativan (Lorazepam) 1 Mg Tablet 0.25 Mg PO TID Depakote Sprinkle (Divalproex Sodium) 125 Mg Cap.sprink 375 Mg PO BID Namenda (Memantine Hcl) 10 Mg Tablet 10 Mg PO BID Vitamin D (Cholecalciferol (Vitamin D3)) 1,000 Unit Capsule 1,000 Unit PO DAILY Aldactone (Spironolactone) 25 Mg Tablet 12.5 Mg PO DAILY Lasix (Furosemide) 20 Mg Tablet 20 Mg PO DAILY Pepcid (Famotidine) 20 Mg Tablet 20 Mg PO DAILY Vitamin B-12 (Cyanocobalamin (Vitamin B-12)) 1,000 Mcg Tablet 1,000 Mcg PO DAILY Synthroid (Levothyroxine Sodium) 50 Mcg Tablet 37.5 Mcg PO DAILY06 I have reviewed the current psychotropics carefully including drug interactions. Risk benefit ratio favors no change other than as noted in my dictated progress note. Diagnosis: Problems: (1) Anxiety disorder (2) Dementia in Alzheimer's disease with delusions (3) Dementia in Alzheimer's disease with depression (4) Dementia, vascular, with delusions (5) Dementia, vascular, with depression (6) Impulse control disorder (7) Urinary tract infection NANDA OLVERA MD Jul 21, 2018 23:26
[2018-07-22] MEDS: LEVOTHYROXINE 75 MCG TABLET PO SCH (06:17)
[2018-07-22 06:40] VITALS: BP 140/70
[2018-07-22] MEDS: CHOLECALCIFEROL (VITAMIN D3) 1,000 UNIT TABLET PO SCH (08:08)
[2018-07-22] MEDS: FUROSEMIDE 20 MG TABLET PO SCH (08:08)
[2018-07-22] MEDS: MEMANTINE 10 MG TABLET. PO SCH ×2 (08:08→19:43)
[2018-07-22] MEDS: CYANOCOBALAMIN (VITAMIN B-12) 1,000 MCG TABLET. PO SCH (08:08)
[2018-07-22] MEDS: SPIRONOLACTONE 25 MG TABLET PO SCH (08:09)
[2018-07-22] MEDS: DIVALPROEX 125 MG CAP.SPRINK PO SCH ×2 (08:09→19:44)
[2018-07-22] MEDS: FAMOTIDINE 20 MG TABLET PO SCH (08:09)
[2018-07-22] MEDS: LORazepam 0.5 MG TABLET PO SCH (08:11)
[2018-07-22 08:27] LABS: BASO % 0 % (0-3); EOS # 0.1 x10^3/uL (0.0-0.7); EOS % 1 % (0-3); HEMATOCRIT 40.5 % (36.0-47.0); HEMOGLOBIN 13.7 g/dL (12.0-15.5); LYMPH # 1.1 x10^3/uL (1.0-4.8); LYMPH % 26 % (24-48); MEAN CORPUSCULAR HEMOGLOBIN 31 pg (25-35); MEAN CORPUSCULAR HGB CONC 34 g/dL (31-37); MEAN CORPUSCULAR VOLUME 93 fL (79-100); MONO # 0.5 x10^3/uL (0.0-1.1); MONO % 13 % (0-9); NEUT # 2.5 x10^3uL (1.8-7.7); NEUT % 59 % (31-73); PLATELET COUNT 190 x10^3/uL (140-400); RED BLOOD COUNT 4.37 x10^6/uL (3.50-5.40); RED CELL DISTRIBUTION WIDTH 13.4 % (11.5-14.5); WHITE BLOOD COUNT 4.3 x10^3/uL (4.0-11.0)
[2018-07-22 08:51] LABS: ALBUMIN/GLOBULIN RATIO 0.8 (1.0-1.7); CALCIUM 8.2 mg/dL (8.5-10.1); GFR 52.2; POTASSIUM 4.3 mmol/L (3.5-5.1); TOTAL BILIRUBIN 0.3 mg/dL (0.2-1.0); TOTAL PROTEIN 6.6 g/dL (6.4-8.2)
[2018-07-22 11:15] LABS: % BANDS 2 % (0-9); % BASOS 1 % (0-3); % EOS 1 % (0-5); % LYMPHS 23 % (24-48); % MONOS 11 % (0-10); % SEGS 47 % (35-66)
[2018-07-22 11:16] LABS: PLT ESTIMATE ADEQUATE (ADEQUATE)
[2018-07-22 16:07] VITALS: BP 119/82
[2018-07-22] MEDS: DONEPEZIL HCL 10 MG TABLET PO SCH (19:43)
[2018-07-22] MEDS: SERTRALINE 50 MG TABLET. PO SCH (19:43)
[2018-07-23] MEDS: LEVOTHYROXINE 75 MCG TABLET PO SCH (06:14)
[2018-07-23 06:29] VITALS: BP 166/67
[2018-07-23] MEDS: FUROSEMIDE 20 MG TABLET PO SCH (07:52)
[2018-07-23] MEDS: CYANOCOBALAMIN (VITAMIN B-12) 1,000 MCG TABLET. PO SCH (07:52)
[2018-07-23] MEDS: FAMOTIDINE 20 MG TABLET PO SCH (07:52)
[2018-07-23] MEDS: CHOLECALCIFEROL (VITAMIN D3) 1,000 UNIT TABLET PO SCH (07:52)
[2018-07-23] MEDS: DIVALPROEX 125 MG CAP.SPRINK PO SCH ×2 (07:52→19:53)
[2018-07-23] MEDS: MEMANTINE 10 MG TABLET. PO SCH ×2 (07:52→19:54)
[2018-07-23] MEDS: SPIRONOLACTONE 25 MG TABLET PO SCH (07:53)
[2018-07-23] MEDS: LORazepam 0.5 MG TABLET PO SCH (07:55)
[2018-07-23 16:46] VITALS: BP 138/78
[2018-07-23] MEDS: DONEPEZIL HCL 10 MG TABLET PO SCH (19:53)
[2018-07-23] MEDS: SERTRALINE 50 MG TABLET. PO SCH (19:54)
--- NOTE | 2018-07-23 19:57 | PN ---
DATE: 07/20/2018 PSYCHIATRIC PROGRESS NOTE This late entry 07/20/2018 covers elements not covered in my initial note. SUBJECTIVE: I met with the patient in the evening, staffed at a treatment team meeting with the entire team the morning. Discussed the patient's diagnosis, progress. She slept 7 hours previous night. Her daughter, Carolina attended the treatment team meeting, discussed her past history of working in the [employer] past. Appetite 75%. REVIEW OF SYSTEMS: No CV, , pulmonary, eye, ENT system symptoms on review. Reliability poor. MENTAL STATUS EXAM: Oriented to herself. Insight, judgment, recent and remote memory, attention, concentration, fund of knowledge poor, consistent with her diagnosis. IMPRESSION: Major neurocognitive disorder, Alzheimer, vascular with delusion, depression, behavioral disturbance; anxiety disorder, unspecified; impulse control disorder, unspecified. PLAN: We will go ahead and taper the Ativan until we discontinue it. I feel this could be causing some paradoxical disinhibition worsening her presenting symptoms, agitation, and sundowning. Maintain Namenda 10 b.i.d., Depakote 500 b.i.d. Valproic acid level therapeutic at 63, Aricept 10 mg a day, Zoloft 50 mg a day. NANDA OLVERA MD DR: MACY/aretha JOB#: [id number] / [id number]
[2018-07-23] MEDS: DOCUSATE 100 MG/10 ML SOLUTION. PO SCH (21:26)
[2018-07-24 06:24] VITALS: BP 146/73
[2018-07-24] MEDS: LEVOTHYROXINE 75 MCG TABLET PO SCH (06:24)
[2018-07-24] MEDS: CYANOCOBALAMIN (VITAMIN B-12) 1,000 MCG TABLET. PO SCH (07:09)
[2018-07-24] MEDS: FUROSEMIDE 20 MG TABLET PO SCH (07:09)
[2018-07-24] MEDS: CHOLECALCIFEROL (VITAMIN D3) 1,000 UNIT TABLET PO SCH (07:10)
[2018-07-24] MEDS: SPIRONOLACTONE 25 MG TABLET PO SCH (07:10)
[2018-07-24] MEDS: DIVALPROEX 125 MG CAP.SPRINK PO SCH ×2 (07:10→21:26)
[2018-07-24] MEDS: FAMOTIDINE 20 MG TABLET PO SCH (07:11)
[2018-07-24] MEDS: MEMANTINE 10 MG TABLET. PO SCH ×2 (07:11→21:26)
[2018-07-24] MEDS: DOCUSATE 100 MG/10 ML SOLUTION. PO SCH ×2 (07:49→21:26)
[2018-07-24] MEDS: LORazepam 0.5 MG TABLET PO SCH (07:50)
[2018-07-24 16:32] VITALS: BP_SYST 125; BP_SYST 141; BP_DIAS 65; BP_DIAS 78
--- NOTE | 2018-07-24 20:27 | PN ---
DATE: 07/21/2018 PSYCHIATRIC PROGRESS NOTE This late entry 07/21/2018 covers elements, not covered in my initial note. SUBJECTIVE: I met with the patient in the morning. The patient slept 7 hours previous night. Overall, she remains confused, but much less anxious, less aggressive. REVIEW OF SYSTEMS: No CV, , eye, ENT or pulmonary system symptoms on review. Reliability poor. MENTAL STATUS EXAM: Oriented to herself. Insight, judgment, recent and remote memory, attention, concentration, fund of knowledge poor, consistent with her diagnoses. IMPRESSION: Major neurocognitive disorder, Alzheimer, vascular with delusion, depression, behavioral disturbance; anxiety disorder, unspecified; impulse control disorder, unspecified; status post urinary tract infection. PLAN: Continue psychotropics from initial note including Namenda 10 b.i.d., Depakote 500 b.i.d. Valproic acid level therapeutic at 63, Ativan 0.25 mg b.i.d., which is being tapered to be ultimately discontinued. She is also on Zoloft 50 mg a day, Aricept 10 mg a day. We will taper and stop the Ativan. Continue the rest unchanged and if anxiety, irritability, mood lability persist, we will increase the Zoloft as well. Dr. Lawler is going to resume care of the patient starting evening of 07/21/2018. MAN Nataly OLVERA MD DR: MACY/aretha JOB#: [id number] / [id number]
[2018-07-24] MEDS: SERTRALINE 50 MG TABLET. PO SCH (21:26)
[2018-07-24] MEDS: DONEPEZIL HCL 10 MG TABLET PO SCH (21:26)
--- NOTE | 2018-07-24 23:25 | PDOC ---
Exam Note: Pepe Note: Please also refer to the separate dictated note~for this date of service dictated separately.~Patient seen individually. Discussed the patient with Nursing staff reviewed the chart.~Reviewed interim history and current functioning. Reviewed vital signs,~Labs/ Radiology~and current medications noted below. Continue current treatment with the changes noted in the dictated addendum note Assessment: Vital Signs: Vital Signs Date Time Temp Pulse Resp B/P (MAP) Pulse Ox O2 Delivery O2 Flow Rate FiO2 07/24/18 16:32 97.4 71 17 141/78 (99) 97 Room Air I&O Intake and Output 07/24/18 07:00 Intake Total 780 ml Balance 780 ml Intake Oral 780 ml # Voids 1 # Bowel Movements 1 Current Medications: Meds: Current Medications Acetaminophen (Tylenol) 650 mg PRN Q6HRS PRN PO PAIN / TEMP; Start 07/12/18 at 17:45 Multi-Ingredient Ointment (Analgesic [place]) 1 jazlyn PRN QID PRN TP MUSCLE PAIN; Start 07/12/18 at 17:45 Al Hydroxide/Mg Hydroxide (Mylanta Plus Xs) 15 ml PRN AFTMEALHC PRN PO DYSPEPSIA; Start 07/12/18 at 17:45 Magnesium Hydroxide (Milk Of Magnesia) 2,400 mg PRN QHS PRN PO CONSTIPATION; Start 07/12/18 at 17:45 Influenza Virus Vaccine (Afluria Trivalent [id number] Syringe) 0.5 ml ONCE ONCE VAX IM Last administered on 07/13/18at 15:24; Start 07/13/18 at 09:00; Stop 07/13/18 at 09:01; Status DC Cyanocobalamin (Vitamin B-12) 1,000 mcg DAILY PO Last administered on at 07:09; Start 07/13/18 at 09:00 Furosemide (Lasix) 20 mg DAILY PO Last administered on 07/24/18at 07:09; Start 07/13/18 at 09:00 Lorazepam (Ativan) 0.25 mg TID PO Last administered on 07/18/18at 14:34; Start 07/12/18 at 21:00; Stop 07/18/18 at 16:24; Status DC Vitamin D (Vitamin D3) 1,000 unit DAILY PO Last administered on 07/24/18at 07: 10; Start 07/13/18 at 09:00 Divalproex Sodium (Depakote Sprinkles) 375 mg BID PO Last administered on 07/13 10:25; Start 07/12/18 at 21:00; Stop 07/13/18 at 12:50; Status DC Donepezil HCl (Aricept) 10 mg QHS PO Last administered on 07/24/18 21:26; Start 07/12/18 at 21:00 Famotidine (Pepcid) 20 mg DAILY PO Last administered on 07/24/18 07:11; Start 07/13/18 at 09:00 Levothyroxine Sodium (Synthroid) 37.5 mcg DAILY06 PO Last administered on 07/24 06:24; Start 07/13/18 at 06:00 Memantine (Namenda) 10 mg BID PO Last administered on 07/24/18 21:26; Start 07/12/18 at 21:00 Sertraline HCl (Zoloft) 25 mg QHS PO Last administered on 07/16/18at 19:28; Start 07/12/18 at 21:00; Stop 07/17/18 at 16:31; Status DC Spironolactone (Aldactone) 12.5 mg DAILY PO Last administered on 07/24/18 07: 10; Start 07/13/18 at 09:00 Divalproex Sodium (Depakote Sprinkles) 500 mg BID PO Last administered on 07/24 21:26; Start 07/13/18 at 21:00 Sertraline HCl (Zoloft) 50 mg QHS PO Last administered on 07/24/18 21:26; Start 07/17/18 at 21:00 Lorazepam (Ativan) 0.25 mg BID PO Last administered on 07/21/18at 19:52; Start 07/18/18 at 21:00; Stop 07/21/18 at 21:00; Status DC Lorazepam (Ativan) 0.25 mg DAILY PO Last administered on 07/24/18 07:50; Start 07/22/18 at 09:00; Stop 07/25/18 at 09:00 Docusate Sodium (Colace Solution) 100 mg BID PO Last administered on at 21:26; Start 07/23/18 at 21:00 Active Scripts Active Reported Zoloft (Sertraline Hcl) 25 Mg Tablet 25 Mg PO QHS Aricept (Donepezil Hcl) 10 Mg Tablet 10 Mg PO QHS Ativan (Lorazepam) 1 Mg Tablet 0.25 Mg PO TID Depakote Sprinkle (Divalproex Sodium) 125 Mg Cap.sprink 375 Mg PO BID Namenda (Memantine Hcl) 10 Mg Tablet 10 Mg PO BID Vitamin D (Cholecalciferol (Vitamin D3)) 1,000 Unit Capsule 1,000 Unit PO DAILY Aldactone (Spironolactone) 25 Mg Tablet 12.5 Mg PO DAILY Lasix (Furosemide) 20 Mg Tablet 20 Mg PO DAILY Pepcid (Famotidine) 20 Mg Tablet 20 Mg PO DAILY Vitamin B-12 (Cyanocobalamin (Vitamin B-12)) 1,000 Mcg Tablet 1,000 Mcg PO DAILY Synthroid (Levothyroxine Sodium) 50 Mcg Tablet 37.5 Mcg PO DAILY06 I have reviewed the current psychotropics carefully including drug interactions. Risk benefit ratio favors no change other than as noted in my dictated progress note. Diagnosis: Problems: (1) Anxiety disorder (2) Dementia in Alzheimer's disease with delusions (3) Dementia in Alzheimer's disease with depression (4) Dementia, vascular, with delusions (5) Dementia, vascular, with depression (6) Impulse control disorder (7) Urinary tract infection NANDA OLVERA MD Jul 24, 2018 23:25
[2018-07-25 05:43] VITALS: BP 137/84
[2018-07-25] MEDS: LEVOTHYROXINE 75 MCG TABLET PO SCH (06:27)
[2018-07-25] MEDS: DOCUSATE 100 MG/10 ML SOLUTION. PO SCH ×2 (08:46→19:27)
[2018-07-25] MEDS: CHOLECALCIFEROL (VITAMIN D3) 1,000 UNIT TABLET PO SCH (08:46)
[2018-07-25] MEDS: SPIRONOLACTONE 25 MG TABLET PO SCH (08:47)
[2018-07-25] MEDS: FAMOTIDINE 20 MG TABLET PO SCH (08:47)
[2018-07-25] MEDS: MEMANTINE 10 MG TABLET. PO SCH ×2 (08:48→19:28)
[2018-07-25] MEDS: CYANOCOBALAMIN (VITAMIN B-12) 1,000 MCG TABLET. PO SCH (08:48)
[2018-07-25] MEDS: DIVALPROEX 125 MG CAP.SPRINK PO SCH ×2 (08:48→19:28)
[2018-07-25] MEDS: FUROSEMIDE 20 MG TABLET PO SCH (08:48)
[2018-07-25] MEDS: LORazepam 0.5 MG TABLET PO SCH (08:52)
[2018-07-25 16:12] VITALS: BP 102/67
[2018-07-25] MEDS: DONEPEZIL HCL 10 MG TABLET PO SCH (19:28)
[2018-07-25] MEDS: SERTRALINE 50 MG TABLET. PO SCH (19:28)
[2018-07-26] MEDS ORDERED: ACET325T9 PO (02:25)
[2018-07-26] MEDS ORDERED: MAG355OR17 PO (02:26)
[2018-07-26] MEDS ORDERED: DOCU-109 PO (02:26)
[2018-07-26] MEDS ORDERED: MAGN2400 PO (02:27)
[2018-07-26] MEDS ORDERED: METH29OI TP (02:28)
[2018-07-26 06:09] VITALS: BP 134/84
[2018-07-26] MEDS: LEVOTHYROXINE 75 MCG TABLET PO SCH (06:10)
[2018-07-26] MEDS: FUROSEMIDE 20 MG TABLET PO SCH (08:20)
[2018-07-26] MEDS: MEMANTINE 10 MG TABLET. PO SCH (08:20)
[2018-07-26] MEDS: DOCUSATE 100 MG/10 ML SOLUTION. PO SCH (08:20)
[2018-07-26] MEDS: SPIRONOLACTONE 25 MG TABLET PO SCH (08:20)
[2018-07-26] MEDS: CHOLECALCIFEROL (VITAMIN D3) 1,000 UNIT TABLET PO SCH (08:20)
[2018-07-26] MEDS: FAMOTIDINE 20 MG TABLET PO SCH (08:20)
[2018-07-26] MEDS: CYANOCOBALAMIN (VITAMIN B-12) 1,000 MCG TABLET. PO SCH (08:20)
[2018-07-26] MEDS: DIVALPROEX 125 MG CAP.SPRINK PO SCH (08:21)
--- NOTE | 2018-07-26 17:54 | PN ---
DATE: 07/24/2018 This is a late entry, 07/24/2018, covers the elements not covered in my initial note. SUBJECTIVE: I met with the patient in the evening. I also reviewed information from Dr. Lawler as he had covered for me over the weekend. The patient slept 6-1/2 hours previous the previous evening, remains confused, oriented just to herself that mood is better. She was singing and very pleasant. REVIEW OF SYSTEMS: No CV, , pulmonary, eye, ENT system symptoms on review. Reliability poor. MENTAL STATUS EXAM: Oriented to herself. Insight, judgment, recent and remote memory, attention, concentration, fund of knowledge poor, consistent with her diagnosis as mentioned in my initial note. IMPRESSION: Major neurocognitive disorder, Alzheimer, vascular with delusion, depression, behavioral disturbance; anxiety disorder, unspecified; impulse control disorder, unspecified. PLAN: No change from initial note. May adjust further as clinically indicated and we are tapering off the Ativan, maintain Namenda, Depakote, Zoloft, and Aricept. MAN Nataly OLVERA MD DR: MACY/aretha JOB#: [id number] / [id number]
--- NOTE | 2018-07-27 00:10 | PN ---
DATE: 07/25/2018 PSYCHIATRIC PROGRESS NOTE This late entry 07/25/2018 covers elements not covered in my initial note. SUBJECTIVE: I met with the patient in the evening. The patient slept 6-1/4 hours previous night. Overall, remains confused, but cooperative. REVIEW OF SYSTEMS: No CV, , pulmonary, eye, ENT system symptoms on review. Reliability poor. MENTAL STATUS EXAM: Oriented to herself. Insight, judgment, recent and remote memory, attention, concentration, fund of knowledge poor, consistent with her diagnosis mentioned in my initial note. PLAN: No change from initial note. Transition to halfway on 07/26/2018. MAN Nataly OLVERA MD DR: MACY/aretha JOB#: [id number] / [id number]
--- NOTE | 2018-07-27 22:48 | DS ---
DATE OF DISCHARGE: 07/26/2018 DISCHARGE SUMMARY/PSYCHIATRIC PROGRESS NOTE This late entry 07/26/2018 covers elements not covered in my initial note. REASON FOR ADMISSION: Please refer to the admission history for details. Briefly, the patient is an 88-year-old female referred to us from [facility] by her primary care physician on account of increased agitation, worsening in the evening with sundowning. She tried to pull a peer out of bed. She is impulsive. Talking to people that are there, increased restlessness was quite prominent and she was having sleep and appetite changes. Behaviors were deemed dangerous, out of control, unmanageable because of aggression towards other residents at the assisted. She had failed outpatient psychiatric interventions resulting in this referral. SIGNIFICANT FINDINGS AND CLINICAL COURSE: Following admission, the patient was seen daily individually by myself from a psychiatric standpoint, medical followup per Dr. Reed/Dr. Bond. The patient was extremely confused, anxious, restless at admission. She did have a UTI diagnosed at [facility], which is where she went from [facility] before coming to us. The UTI was treated and adjustments were made in her psychotropics. She seemed to respond to a combination of Namenda 10 mg b.i.d., Depakote 500 mg b.i.d. with the Valproic acid level therapeutic at 64. Ativan was tapered and discontinued, Aricept 10 mg a day, Zoloft 50 mg a day. CONDITION AT DISCHARGE: Improved prior to discharge. REVIEW OF SYSTEMS: Ambulation impaired. No CV, , pulmonary, eye, ENT system symptoms on review. MENTAL STATUS EXAM: Oriented to herself. Insight, judgment, recent and remote memory, attention, concentration, fund of knowledge poor, consistent with her diagnosis. FINAL DIAGNOSES: Major neurocognitive disorder, Alzheimer, vascular with delusion, depression, behavioral disturbance; anxiety disorder, unspecified; impulse control disorder, unspecified; status post urinary tract infection. Rest unchanged from admission. DISCHARGE MEDICATIONS: Please refer to the [facility]. DISCHARGE INSTRUCTIONS: Outpatient psychiatric and medical followup at the assisted. Time for discharge day management greater than 30 minutes. NANDA OLVERA MD DR: MACY/aretha JOB#: [id number] / [id number]
== END 2018-07-26 11:39 | DRG 57 ==
LOC: GEROPSY 17:18
PROVIDERS: ADMIT Psychiatry & Neurology Psychiatry; ATTEND Psychiatry & Neurology Psychiatry
DX: G30.9 Alzheimer's disease, unspecified (principal); E87.1 Hypo-osmolality and hyponatremia; F05 Delirium due to known physiological condition; N39.0 Urinary tract infection, site not specified; F01.51 Vascular dementia, unspecified severity, with behavioral disturbance; F02.81 Dementia in other diseases classified elsewhere, unspecified severity, with behavioral disturbance; E03.9 Hypothyroidism, unspecified; F32.9 Major depressive disorder, single episode, unspecified; F41.9 Anxiety disorder, unspecified; F63.9 Impulse disorder, unspecified; Z66 Do not resuscitate; Z79.899 Other long term (current) drug therapy; Z87.440 Personal history of urinary (tract) infections; Z91.81 History of falling; Z88.6 Allergy status to analgesic agent; Z88.1 Allergy status to other antibiotic agents; Z88.2 Allergy status to sulfonamides; Z88.8 Allergy status to other drugs, medicaments and biological substances
CPT/HCPCS: 36415; 80053; 80061; 80164; 82306; 82607; 83036; 83540; 83550; 83735; 84436; 84443; 84480; 85007; 85025; 86592; 90471; 90756; Q2035